=== PATIENT | male | born 1995 | race Caucasian/White ===

== ENCOUNTER 2017-10-06 12:10 | Inpatient (IN) | payer OTHER ==
[2017-10-06] MEDS ORDERED: NACL 0.9% 3 ML SYG IV (14:00)
[2017-10-06] MEDS ORDERED: HYDROmorphONE 0.5 MG/0.5 ML SYG IV (14:00)
[2017-10-06] MEDS ORDERED: ONDANSETRON 4 MG INJ IV (14:00)
[2017-10-06] MEDS ORDERED: oxyCODONE 5 MG TAB GTB (15:30)
[2017-10-06] MEDS ORDERED: hydrALAzine 20 MG INJ IV (15:30)
[2017-10-06] MEDS ORDERED: BISACODYL 10 MG SUPP PR (15:30)
[2017-10-06] MEDS ORDERED: HYPROMELLOSE 0.5% 15 ML OPH BOTH EYES (15:30)
[2017-10-06] MEDS: HYDROmorphONE 1 MG/ML SYG IV (19:30)
[2017-10-06] MEDS: LEVETIRACETAM (100 MG/ML) 5ML CUP GTB (20:13)
[2017-10-06] MEDS: POLYETHYLENE GLYCOL 17 GM PACKET GTB (20:13)
[2017-10-06] MEDS: LACTOBACILLUS RHAMNOSUS CAP GTB (20:14)
[2017-10-06] MEDS: SENNA TAB GTB (20:14)
[2017-10-06] MEDS: PROPRANOLOL 20 MG TAB PO (20:14)
[2017-10-07] MEDS: HYDROmorphONE 1 MG/ML SYG IV ×3 (02:56→19:06)
[2017-10-07] MEDS: ACETAMINOPHEN 650MG/20.3ML CUP GTB (06:03)
[2017-10-07 06:12] LABS: ADD MAN DIFF? NO
[2017-10-07 06:38] LABS: WHITE BLOOD COUNT 11.7 10^3/ul (4.8-10.8)
[2017-10-07 06:38] LABS: BASOPHIL # 0.1 10^3/ul (0.0-0.1); BASOPHILS % 0.5 % (0.0-2.0); EOSINOPHILS # 0.1 10^3/ul (0.0-0.5); EOSINOPHILS % 0.5 % (0.0-7.0); HEMATOCRIT 47.2 % (42.0-52.0); HEMOGLOBIN 15.3 g/dl (14.0-18.0); LYMPHOCYTES # 1.2 10^3/ul (0.8-2.9); MEAN CORPUSCULAR HEMOGLOBIN 29.5 pg (29.0-33.0); MEAN CORPUSCULAR HGB CONC 32.4 g/dl (32.0-37.0); MEAN CORPUSCULAR VOLUME 91.1 fl (82.0-101.0); MONOCYTE # 1.1 10^3/ul (0.3-0.9); MONOCYTES % 8.9 % (0.0-11.0); NEUTROPHIL # 9.3 10^3/ul (1.6-7.5); NEUTROPHILS % 79.2 % (39.0-77.0); PLATELET COUNT 305 10^3/UL (140-415); RED BLOOD COUNT 5.18 10^6/ul (4.70-6.10); RED CELL DISTRIBUTION WIDTH 14.8 % (11.5-14.5)
[2017-10-07 07:07] LABS: ANION GAP 17 (8-16); BLOOD UREA NITROGEN 39 mg/dl (7-20); CALCIUM 9.7 mg/dl (8.4-10.2); CARBON DIOXIDE 29 mmol/L (21-31); CHLORIDE 104 mmol/L (97-110); CREATININE 1.08 mg/dl (0.61-1.24); GLUCOSE 149 mg/dl (70-220); PHOSPHORUS 3.3 mg/dl (2.5-4.9); POTASSIUM 4.9 mmol/L (3.5-5.1); SODIUM 145 mmol/L (135-144)
[2017-10-07] MEDS: LACTOBACILLUS RHAMNOSUS CAP GTB ×2 (08:56→20:26)
[2017-10-07] MEDS: POLYETHYLENE GLYCOL 17 GM PACKET GTB ×2 (08:56→20:26)
[2017-10-07] MEDS: LEVETIRACETAM (100 MG/ML) 5ML CUP GTB ×2 (08:56→20:26)
[2017-10-07] MEDS: PROPRANOLOL 20 MG TAB PO ×3 (08:58→20:26)
[2017-10-07] MEDS: AMANTADINE 100 MG/10 ML POSYR GTB (09:02)
[2017-10-07] MEDS: ZINC SULFATE 220 MG CAP GTB (09:02)
[2017-10-07] MEDS: ASCORBIC ACID 500 MG TAB GTB (09:02)
[2017-10-07] MEDS: SENNA TAB GTB (20:26)
[2017-10-08] MEDS: HYDROmorphONE 1 MG/ML SYG IV (04:10)
[2017-10-08] MEDS: ACETAMINOPHEN 650MG/20.3ML CUP GTB ×3 (05:13→21:13)
[2017-10-08] MEDS: POLYETHYLENE GLYCOL 17 GM PACKET GTB ×2 (09:00→21:13)
[2017-10-08] MEDS: ZINC SULFATE 220 MG CAP GTB (09:48)
[2017-10-08] MEDS: LACTOBACILLUS RHAMNOSUS CAP GTB ×2 (09:48→21:15)
[2017-10-08] MEDS: LEVETIRACETAM (100 MG/ML) 5ML CUP GTB ×2 (09:48→21:13)
[2017-10-08] MEDS: PROPRANOLOL 20 MG TAB PO ×3 (09:49→21:14)
[2017-10-08] MEDS: ASCORBIC ACID 500 MG TAB GTB (09:49)
[2017-10-08] MEDS: AMANTADINE 100 MG/10 ML POSYR GTB (09:49)
[2017-10-08] MEDS: SENNA TAB GTB (21:14)
[2017-10-09] MEDS: ACETAMINOPHEN 650MG/20.3ML CUP GTB ×2 (07:42→21:33)
[2017-10-09] MEDS: ZINC SULFATE 220 MG CAP GTB (09:25)
[2017-10-09] MEDS: PROPRANOLOL 20 MG TAB PO ×3 (09:26→21:33)
[2017-10-09] MEDS: ASCORBIC ACID 500 MG TAB GTB (09:26)
[2017-10-09] MEDS: POLYETHYLENE GLYCOL 17 GM PACKET GTB ×2 (09:26→21:15)
[2017-10-09] MEDS: LACTOBACILLUS RHAMNOSUS CAP GTB ×2 (09:26→21:15)
[2017-10-09] MEDS: LEVETIRACETAM (100 MG/ML) 5ML CUP GTB ×2 (09:26→21:15)
[2017-10-09] MEDS: AMANTADINE 100 MG/10 ML POSYR GTB (09:26)
[2017-10-09] MEDS: HYDROmorphONE 1 MG/ML SYG IV ×2 (11:43→19:00)
[2017-10-09] MEDS: BALSAM PERU/CASTOR OIL 60 GM TUBE TOP (21:15)
[2017-10-09] MEDS: SENNA TAB GTB (21:15)
[2017-10-10 01:19] LABS: ADD UMIC YES; UR ASCORBIC ACID 40 mg/dL (NEGATIVE); UR BILIRUBIN (Dip) NEGATIVE (NEGATIVE); UR BLOOD (Dip) NEGATIVE (NEGATIVE); UR CALCIUM OXALATE CRYSTAL FEW /HPF (NONE SEEN); UR CLARITY CLEAR (CLEAR); UR COLOR YELLOW (YELLOW); UR GLUCOSE (Dip) NEGATIVE (NEGATIVE); UR KETONES (Dip) NEGATIVE (NEGATIVE); UR LEUKOCYTE ESTERASE (Dip) NEGATIVE Leu/ul (NEGATIVE); UR NITRITE (Dip) NEGATIVE (NEGATIVE); UR RBC 2 /HPF (0-5); UR SPECIFIC GRAVITY (Dip) 1.026 (1.003-1.030); UR TOTAL PROTEIN (Dip) 2+ mg/dl (NEGATIVE); UR UROBILINOGEN (Dip) NEGATIVE (NEGATIVE); UR WBC 2 /HPF (0-5)
[2017-10-10] MEDS: LACTOBACILLUS RHAMNOSUS CAP GTB ×2 (09:29→20:32)
[2017-10-10] MEDS: ASCORBIC ACID 500 MG TAB GTB (09:29)
[2017-10-10] MEDS: ZINC SULFATE 220 MG CAP GTB (09:29)
[2017-10-10] MEDS: POLYETHYLENE GLYCOL 17 GM PACKET GTB ×2 (09:30→21:00)
[2017-10-10] MEDS: PROPRANOLOL 20 MG TAB PO ×3 (09:30→20:33)
[2017-10-10] MEDS: LEVETIRACETAM (100 MG/ML) 5ML CUP GTB ×2 (09:31→20:32)
[2017-10-10] MEDS: AMANTADINE 100 MG/10 ML POSYR GTB (09:31)
[2017-10-10] MEDS: BALSAM PERU/CASTOR OIL 60 GM TUBE TOP ×2 (09:31→20:34)
[2017-10-10] MEDS: NYSTATIN SUSP 5 ML CUP PO (09:31)
[2017-10-10] MEDS: HYDROmorphONE 1 MG/ML SYG IV ×2 (13:10→21:14)
[2017-10-10] MEDS: PIPER-TAZO 3.375 GM IV (PMX) 100 ML IVPB ×2 (15:51→22:02)
[2017-10-10] MEDS: ACETAMINOPHEN 650MG/20.3ML CUP GTB (17:57)
[2017-10-10] MEDS: SENNA TAB GTB (21:00)
[2017-10-11] MEDS: HYDROmorphONE 1 MG/ML SYG IV ×2 (03:54→11:06)
[2017-10-11] MEDS: PIPER-TAZO 3.375 GM IV (PMX) 100 ML IVPB ×3 (05:43→21:27)
[2017-10-11] MEDS: LACTOBACILLUS RHAMNOSUS CAP GTB ×2 (09:02→20:34)
[2017-10-11] MEDS: LEVETIRACETAM (100 MG/ML) 5ML CUP GTB ×2 (09:02→20:34)
[2017-10-11] MEDS: POLYETHYLENE GLYCOL 17 GM PACKET GTB ×2 (09:02→20:36)
[2017-10-11] MEDS: AMANTADINE 100 MG/10 ML POSYR GTB (09:03)
[2017-10-11] MEDS: ASCORBIC ACID 500 MG TAB GTB (09:03)
[2017-10-11] MEDS: ZINC SULFATE 220 MG CAP GTB (09:03)
[2017-10-11] MEDS: PROPRANOLOL 20 MG TAB PO ×3 (09:04→20:36)
[2017-10-11] MEDS: BALSAM PERU/CASTOR OIL 60 GM TUBE TOP ×2 (09:05→20:35)
[2017-10-11] MEDS: ACETAMINOPHEN 650MG/20.3ML CUP GTB (19:41)
[2017-10-11] MEDS: SENNA TAB GTB (20:35)
[2017-10-12] MEDS: HYDROmorphONE 1 MG/ML SYG IV (05:27)
[2017-10-12] MEDS: PIPER-TAZO 3.375 GM IV (PMX) 100 ML IVPB ×3 (05:28→21:37)
[2017-10-12 07:02] LABS: ADD MAN DIFF? NO
[2017-10-12 07:08] LABS: BASOPHILS % 0.3 % (0.0-2.0); EOSINOPHILS # 0.2 10^3/ul (0.0-0.5); EOSINOPHILS % 2.4 % (0.0-7.0); HEMATOCRIT 37.2 % (42.0-52.0); HEMOGLOBIN 11.9 g/dl (14.0-18.0); LYMPHOCYTES # 0.8 10^3/ul (0.8-2.9); LYMPHOCYTES % 11.9 % (15.0-51.0); MEAN CORPUSCULAR HEMOGLOBIN 29.9 pg (29.0-33.0); MEAN CORPUSCULAR VOLUME 93.5 fl (82.0-101.0); MEAN PLATELET VOLUME 11.4 fl (7.4-10.4); MONOCYTE # 0.6 10^3/ul (0.3-0.9); MONOCYTES % 8.4 % (0.0-11.0); NEUTROPHIL # 5.4 10^3/ul (1.6-7.5); NEUTROPHILS % 76.7 % (39.0-77.0); PLATELET COUNT 144 10^3/UL (140-415); RED BLOOD COUNT 3.98 10^6/ul (4.70-6.10); RED CELL DISTRIBUTION WIDTH 13.4 % (11.5-14.5)
[2017-10-12 07:36] LABS: ALANINE AMINOTRANSFERASE 188 IU/L (13-69); ALBUMIN 3.9 g/dl (3.3-4.9); ALBUMIN/GLOBULIN RATIO 1.18; ALKALINE PHOSPHATASE 90 IU/L (42-121); ANION GAP 13 (8-16); ASPARTATE AMINO TRANSFERASE 66 IU/L (15-46); BILIRUBIN,INDIRECT 0.6 mg/dl (0-1.1); BILIRUBIN,TOTAL 0.6 mg/dl (0.2-1.3); BLOOD UREA NITROGEN 32 mg/dl (7-20); CALCIUM 9.3 mg/dl (8.4-10.2); CARBON DIOXIDE 30 mmol/L (21-31); CHLORIDE 110 mmol/L (97-110); CREATININE 0.87 mg/dl (0.61-1.24); GLUCOSE 140 mg/dl (70-220); POTASSIUM 3.9 mmol/L (3.5-5.1); SODIUM 149 mmol/L (135-144); TOTAL PROTEIN 7.2 g/dl (6.1-8.1)
[2017-10-12] MEDS: PROPRANOLOL 20 MG TAB PO ×3 (09:00→21:41)
[2017-10-12] MEDS: POLYETHYLENE GLYCOL 17 GM PACKET GTB ×2 (09:28→21:37)
[2017-10-12] MEDS: AMANTADINE 100 MG/10 ML POSYR GTB (09:29)
[2017-10-12] MEDS: ASCORBIC ACID 500 MG TAB GTB (09:29)
[2017-10-12] MEDS: LACTOBACILLUS RHAMNOSUS CAP GTB ×2 (09:29→21:37)
[2017-10-12] MEDS: LEVETIRACETAM (100 MG/ML) 5ML CUP GTB ×2 (09:29→21:37)
[2017-10-12] MEDS: ZINC SULFATE 220 MG CAP GTB (09:29)
[2017-10-12] MEDS: BALSAM PERU/CASTOR OIL 60 GM TUBE TOP ×2 (09:30→21:36)
[2017-10-12] MEDS ORDERED: ALBUTEROL/IPRATROPIUM (NEB) 3 ML AMP HHN (15:00)
[2017-10-12] MEDS: SENNA TAB GTB (21:37)
[2017-10-13] MEDS: PIPER-TAZO 3.375 GM IV (PMX) 100 ML IVPB ×3 (05:48→22:35)
[2017-10-13] MEDS: POLYETHYLENE GLYCOL 17 GM PACKET GTB ×2 (08:25→22:34)
[2017-10-13] MEDS: LEVETIRACETAM (100 MG/ML) 5ML CUP GTB ×2 (08:26→22:32)
[2017-10-13] MEDS: LACTOBACILLUS RHAMNOSUS CAP GTB ×2 (08:26→22:34)
[2017-10-13] MEDS: PROPRANOLOL 20 MG TAB PO ×2 (08:27→13:30)
[2017-10-13] MEDS: ASCORBIC ACID 500 MG TAB GTB (08:27)
[2017-10-13] MEDS: BALSAM PERU/CASTOR OIL 60 GM TUBE TOP ×2 (08:27→22:55)
[2017-10-13] MEDS: ZINC SULFATE 220 MG CAP GTB (08:27)
[2017-10-13] MEDS: AMANTADINE 100 MG/10 ML POSYR GTB (08:27)
[2017-10-13] MEDS: SENNA TAB GTB (22:33)
[2017-10-13] MEDS: PROPRANOLOL 10 MG TAB PO (22:33)
[2017-10-14] MEDS: PIPER-TAZO 3.375 GM IV (PMX) 100 ML IVPB (05:13)
[2017-10-14] MEDS: ASCORBIC ACID 500 MG TAB GTB (08:28)
[2017-10-14] MEDS: LACTOBACILLUS RHAMNOSUS CAP GTB (08:28)
[2017-10-14] MEDS: ZINC SULFATE 220 MG CAP GTB (08:28)
[2017-10-14] MEDS: LEVETIRACETAM (100 MG/ML) 5ML CUP GTB (08:33)
[2017-10-14] MEDS: PROPRANOLOL 10 MG TAB PO (08:33)
[2017-10-14] MEDS: POLYETHYLENE GLYCOL 17 GM PACKET GTB (08:37)
[2017-10-14] MEDS: BALSAM PERU/CASTOR OIL 60 GM TUBE TOP (08:38)
== END 2017-10-14 13:05 | DRG 73 ==
LOC: PP2 12:10
DX: G90.9 Disorder of the autonomic nervous system, unspecified (principal); J18.9 Pneumonia, unspecified organism; K59.00 Constipation, unspecified; S06.5X9D Traumatic subdural hemorrhage with loss of consciousness of unspecified duration, subsequent encounter; Z93.0 Tracheostomy status; Z93.1 Gastrostomy status
CPT/HCPCS: 70553; 71045; 80048; 80053; 81001; 83735; 84100; 85025; 87081

== ENCOUNTER 2017-11-04 21:16 | Inpatient (IN) | payer OTHER ==
[2017-11-04] MEDS: NACL 3% FOR INHALATION 15 ML NEBU NEB (01:00)
[2017-11-04] MEDS ORDERED: LORAZEPAM 2 MG INJ (21:19)
[2017-11-04] MEDS ORDERED: PROPOFOL 100 ML (21:26)
[2017-11-04] MEDS: LORAZEPAM 2 MG INJ IV (21:28)
[2017-11-04] MEDS ORDERED: MIDAZOLAM 1 MG/ML 2 ML INJ (21:35)
[2017-11-04] MEDS: SOD CHLORIDE 0.9% 1,000 ML IV ×2 (21:42→22:42)
[2017-11-04] MEDS: ACETAMINOPHEN 1000MG/100ML IV 100 ML IVPB (21:51)
[2017-11-04] MEDS: MIDAZOLAM 1 MG/ML 2 ML INJ IV (21:54)
[2017-11-04] MEDS ORDERED: VANCOMYCIN IV PER PHARMACY XX (22:00)
[2017-11-04 22:36] LABS: ADD MAN DIFF? NO
[2017-11-04] MEDS: LEVETIRACETAM 1000 MG (PMX) 100 ML IVPB (22:46)
[2017-11-04] MEDS: PIPER-TAZO 3.375 GM IV (PMX) 100 ML IVPB (22:47)
[2017-11-04 22:48] LABS: ABNORMAL IP MESSAGE 1; BASOPHILS % 0.3 % (0.0-2.0); EOSINOPHILS # 0.1 10^3/ul (0.0-0.5); EOSINOPHILS % 1.1 % (0.0-7.0); HEMATOCRIT 34.2 % (42.0-52.0); HEMOGLOBIN 11.1 g/dl (14.0-18.0); LYMPHOCYTES # 0.5 10^3/ul (0.8-2.9); LYMPHOCYTES % 5.7 % (15.0-51.0); MEAN CORPUSCULAR HEMOGLOBIN 29.9 pg (29.0-33.0); MEAN CORPUSCULAR HGB CONC 32.5 g/dl (32.0-37.0); MEAN CORPUSCULAR VOLUME 92.2 fl (82.0-101.0); MEAN PLATELET VOLUME 9.8 fl (7.4-10.4); MONOCYTE # 0.6 10^3/ul (0.3-0.9); MONOCYTES % 6.9 % (0.0-11.0); NEUTROPHIL # 7.8 10^3/ul (1.6-7.5); NEUTROPHILS % 85.1 % (39.0-77.0); PLATELET COUNT 251 10^3/UL (140-415); POSITIVE DIFF @See below; RED BLOOD COUNT 3.71 10^6/ul (4.70-6.10); RED CELL DISTRIBUTION WIDTH 13.5 % (11.5-14.5)
[2017-11-04 22:48] LABS: WHITE BLOOD COUNT 9.2 10^3/ul (4.8-10.8)
[2017-11-04 22:51] LABS: ADD UMIC YES; UR ASCORBIC ACID NEGATIVE (NEGATIVE); UR BACTERIA FEW /HPF (NONE SEEN); UR BILIRUBIN (Dip) NEGATIVE (NEGATIVE); UR BLOOD (Dip) 3+ mg/dL (NEGATIVE); UR CLARITY SLIGHTLY CLOUDY (CLEAR); UR COLOR YELLOW (YELLOW); UR GLUCOSE (Dip) NEGATIVE (NEGATIVE); UR KETONES (Dip) NEGATIVE (NEGATIVE); UR LEUKOCYTE ESTERASE (Dip) NEGATIVE Leu/ul (NEGATIVE); UR MUCUS MODERATE /HPF (NONE SEEN); UR NITRITE (Dip) NEGATIVE (NEGATIVE); UR RBC > 182 /HPF (0-5); UR SPECIFIC GRAVITY (Dip) 1.015 (1.003-1.030); UR TOTAL PROTEIN (Dip) 1+ mg/dl (NEGATIVE); UR UROBILINOGEN (Dip) NEGATIVE (NEGATIVE); UR WBC 9 /HPF (0-5)
[2017-11-04 22:54] LABS: HEMOGLOBIN A1C 5.5 % (0-5.9)
[2017-11-04] MEDS: PROPOFOL 100 ML IV (23:00)
[2017-11-04 23:01] LABS: LACTIC ACID 1.1 mmol/L (0.5-2.0)
[2017-11-04 23:02] LABS: ALANINE AMINOTRANSFERASE 31 IU/L (13-69); ALBUMIN 3.2 g/dl (3.3-4.9); ALKALINE PHOSPHATASE 82 IU/L (42-121); ANION GAP 10 (8-16); ASPARTATE AMINO TRANSFERASE 17 IU/L (15-46); BILIRUBIN,INDIRECT 0.4 mg/dl (0-1.1); BILIRUBIN,TOTAL 0.4 mg/dl (0.2-1.3); BLOOD UREA NITROGEN 8 mg/dl (7-20); CALCIUM 8.6 mg/dl (8.4-10.2); CARBON DIOXIDE 28 mmol/L (21-31); CHLORIDE 102 mmol/L (97-110); CREATININE 0.53 mg/dl (0.61-1.24); GLUCOSE 106 mg/dl (70-220); POTASSIUM 3.9 mmol/L (3.5-5.1); SODIUM 136 mmol/L (135-144); TOTAL PROTEIN 6.1 g/dl (6.1-8.1)
[2017-11-04 23:06] LABS: INR 1.16; PT RATIO 1.2
[2017-11-04 23:07] LABS: PARTIAL THROMBOPLASTIN TIME 32.6 Sec (25.0-35.0)
[2017-11-05] MEDS: VANCOMYCIN 1.5 GM in SOD CHLORIDE 0.9% 250 ML IVPB
[2017-11-05 03:27] LABS: AADO2 Arterial 96.2 mmHg (7.0-24.0); Arterial Blood Gas Oxygen Sat 99.2 mmHG (95.0-98.0); Arterial COHb 0.2 % (0.0-3.0); Arterial Fraction of Oxyhgb 98.6 % (93.0-99.0); Arterial HCO3 27.9 mmol/L (22.0-26.0); Arterial MetHb 0.4 % (0.0-1.5); Arterial Total Hemglobin 10.7 g/dl (12.0-18.0); Arterial pCO2 44.2 mmhg (35-45); MODE VENT - AC; Site Right Radial
[2017-11-05] MEDS: PROPOFOL 100 ML IV ×5 (04:01→21:54)
[2017-11-05 05:22] LABS: ADD MAN DIFF? NO
[2017-11-05 05:24] LABS: BASOPHILS % 0.3 % (0.0-2.0); EOSINOPHILS # 0.2 10^3/ul (0.0-0.5); EOSINOPHILS % 2.2 % (0.0-7.0); HEMATOCRIT 29.4 % (42.0-52.0); HEMOGLOBIN 9.6 g/dl (14.0-18.0); LYMPHOCYTES % 12.8 % (15.0-51.0); MEAN CORPUSCULAR HEMOGLOBIN 29.9 pg (29.0-33.0); MEAN CORPUSCULAR HGB CONC 32.7 g/dl (32.0-37.0); MEAN CORPUSCULAR VOLUME 91.6 fl (82.0-101.0); MEAN PLATELET VOLUME 10.1 fl (7.4-10.4); MONOCYTE # 0.6 10^3/ul (0.3-0.9); MONOCYTES % 8.2 % (0.0-11.0); NEUTROPHIL # 5.6 10^3/ul (1.6-7.5); NEUTROPHILS % 75.8 % (39.0-77.0); PLATELET COUNT 221 10^3/UL (140-415); RED BLOOD COUNT 3.21 10^6/ul (4.70-6.10); RED CELL DISTRIBUTION WIDTH 13.6 % (11.5-14.5)
[2017-11-05 05:24] LABS: WHITE BLOOD COUNT 7.4 10^3/ul (4.8-10.8)
[2017-11-05] MEDS: PIPER-TAZO 3.375 GM IV (PMX) 100 ML IVPB ×3 (05:40→18:18)
[2017-11-05] MEDS: PANTOPRAZOLE 40 MG INJ IV (05:40)
[2017-11-05 05:55] LABS: ALANINE AMINOTRANSFERASE 34 IU/L (13-69); ALBUMIN 2.8 g/dl (3.3-4.9); ALBUMIN/GLOBULIN RATIO 1.12; ALKALINE PHOSPHATASE 77 IU/L (42-121); ANION GAP 9 (8-16); ASPARTATE AMINO TRANSFERASE 15 IU/L (15-46); BILIRUBIN,INDIRECT 0.4 mg/dl (0-1.1); BILIRUBIN,TOTAL 0.4 mg/dl (0.2-1.3); BLOOD UREA NITROGEN 8 mg/dl (7-20); CALCIUM 8.8 mg/dl (8.4-10.2); CARBON DIOXIDE 27 mmol/L (21-31); CHLORIDE 107 mmol/L (97-110); CREATININE 0.53 mg/dl (0.61-1.24); GLUCOSE 85 mg/dl (70-220); POTASSIUM 3.4 mmol/L (3.5-5.1); SODIUM 140 mmol/L (135-144); TOTAL PROTEIN 5.3 g/dl (6.1-8.1)
[2017-11-05] MEDS: LEVETIRACETAM 1000 MG (PMX) 100 ML IVPB ×2 (08:12→21:20)
[2017-11-05] MEDS: VANCOMYCIN 1 GM 250 ML IVPB ×2 (09:26→15:53)
[2017-11-05] MEDS: SOD CHLORIDE 0.9% 1,000 ML IV ×2 (10:04→15:55)
[2017-11-05] MEDS: POTASSIUM CHLORIDE 20 MEQ POWDER FOR ORAL SOLN GTB (14:44)
[2017-11-05] MEDS: ACETAMINOPHEN 1000MG/100ML IV 100 ML IVPB (19:26)
[2017-11-06 00:09] LABS: VANCOMYCIN,TROUGH 11.3 ug/ml (10.0-20.0)
[2017-11-06] MEDS: PIPER-TAZO 3.375 GM IV (PMX) 100 ML IVPB ×4 (00:12→19:00)
[2017-11-06] MEDS: VANCOMYCIN 1 GM 250 ML IVPB ×4 (01:00→23:00)
[2017-11-06] MEDS: ACETAMINOPHEN 1000MG/100ML IV 100 ML IVPB (01:02)
[2017-11-06 06:00] LABS: ADD MAN DIFF? NO
[2017-11-06] MEDS: PANTOPRAZOLE 40 MG INJ IV (06:20)
[2017-11-06 06:29] LABS: BASOPHILS % 0.3 % (0.0-2.0); EOSINOPHILS # 0.2 10^3/ul (0.0-0.5); EOSINOPHILS % 2.3 % (0.0-7.0); HEMATOCRIT 35.6 % (42.0-52.0); HEMOGLOBIN 11.5 g/dl (14.0-18.0); LYMPHOCYTES # 0.7 10^3/ul (0.8-2.9); LYMPHOCYTES % 8.1 % (15.0-51.0); MEAN CORPUSCULAR HEMOGLOBIN 29.8 pg (29.0-33.0); MEAN CORPUSCULAR HGB CONC 32.3 g/dl (32.0-37.0); MEAN CORPUSCULAR VOLUME 92.2 fl (82.0-101.0); MEAN PLATELET VOLUME 9.9 fl (7.4-10.4); MONOCYTE # 0.7 10^3/ul (0.3-0.9); MONOCYTES % 8.3 % (0.0-11.0); NEUTROPHIL # 6.4 10^3/ul (1.6-7.5); NEUTROPHILS % 80.4 % (39.0-77.0); PLATELET COUNT 280 10^3/UL (140-415); RED BLOOD COUNT 3.86 10^6/ul (4.70-6.10); RED CELL DISTRIBUTION WIDTH 13.3 % (11.5-14.5)
[2017-11-06] MEDS: SOD CHLORIDE 0.9% 1,000 ML IV (06:30)
[2017-11-06 06:37] LABS: ALANINE AMINOTRANSFERASE 28 IU/L (13-69); ALBUMIN 3.6 g/dl (3.3-4.9); ALBUMIN/GLOBULIN RATIO 1.16; ALKALINE PHOSPHATASE 102 IU/L (42-121); ANION GAP 17 (8-16); ASPARTATE AMINO TRANSFERASE 17 IU/L (15-46); BILIRUBIN,INDIRECT 0.3 mg/dl (0-1.1); BILIRUBIN,TOTAL 0.3 mg/dl (0.2-1.3); BLOOD UREA NITROGEN 4 mg/dl (7-20); CALCIUM 8.9 mg/dl (8.4-10.2); CARBON DIOXIDE 25 mmol/L (21-31); CHLORIDE 101 mmol/L (97-110); CREATININE 0.51 mg/dl (0.61-1.24); GLUCOSE 74 mg/dl (70-220); POTASSIUM 3.5 mmol/L (3.5-5.1); SODIUM 139 mmol/L (135-144); TOTAL PROTEIN 6.7 g/dl (6.1-8.1)
[2017-11-06 06:44] LABS: MAGNESIUM 1.4 mg/dl (1.7-2.5)
[2017-11-06 06:44] LABS: PHOSPHORUS 3.9 mg/dl (2.5-4.9)
[2017-11-06] MEDS: PROPOFOL 100 ML IV ×3 (06:49→21:02)
[2017-11-06] MEDS: LEVETIRACETAM 1000 MG (PMX) 100 ML IVPB ×2 (09:23→21:01)
[2017-11-06] MEDS: LORAZEPAM 2 MG INJ IV (09:42)
[2017-11-06 13:35] LABS: PHENYTOIN (DILANTIN) 7.3 ug/ml (10.0-20.0)
[2017-11-06 13:50] LABS: Allen Test ACCEPTAB
[2017-11-06] MEDS: PHENYTOIN 100 MG INJ IV ×2 (14:30→21:01)
[2017-11-06 20:00] LABS: RAPID PLASMA REAGIN NONREACTIVE (NR)
[2017-11-07] MEDS: PIPER-TAZO 3.375 GM IV (PMX) 100 ML IVPB ×2 (00:46→05:25)
[2017-11-07] MEDS: PROPOFOL 100 ML IV (01:55)
[2017-11-07] MEDS: MIDAZOLAM 1 MG/ML 2 ML INJ IV (03:19)
[2017-11-07] MEDS: MIDAZOLAM 1 MG/ML 5 ML INJ IV (03:30)
[2017-11-07] MEDS: ACETAMINOPHEN 1000MG/100ML IV 100 ML IVPB ×3 (04:13→20:30)
[2017-11-07] MEDS: PHENYTOIN 100 MG INJ IV ×3 (05:25→22:05)
[2017-11-07] MEDS: PANTOPRAZOLE 40 MG INJ IV (05:25)
[2017-11-07 05:29] LABS: ADD MAN DIFF? NO
[2017-11-07 05:33] LABS: WHITE BLOOD COUNT 4.8 10^3/ul (4.8-10.8)
[2017-11-07 05:33] LABS: ABNORMAL IP MESSAGE 1; BASOPHILS % 0.4 % (0.0-2.0); EOSINOPHILS # 0.1 10^3/ul (0.0-0.5); EOSINOPHILS % 2.9 % (0.0-7.0); HEMATOCRIT 32.9 % (42.0-52.0); LYMPHOCYTES # 0.5 10^3/ul (0.8-2.9); LYMPHOCYTES % 9.4 % (15.0-51.0); MEAN CORPUSCULAR HEMOGLOBIN 30.4 pg (29.0-33.0); MEAN CORPUSCULAR HGB CONC 33.4 g/dl (32.0-37.0); MEAN CORPUSCULAR VOLUME 90.9 fl (82.0-101.0); MEAN PLATELET VOLUME 9.5 fl (7.4-10.4); MONOCYTE # 0.6 10^3/ul (0.3-0.9); MONOCYTES % 12.4 % (0.0-11.0); NEUTROPHIL # 3.6 10^3/ul (1.6-7.5); NEUTROPHILS % 74.5 % (39.0-77.0); PLATELET COUNT 258 10^3/UL (140-415); POSITIVE DIFF @See below; RED BLOOD COUNT 3.62 10^6/ul (4.70-6.10); RED CELL DISTRIBUTION WIDTH 13.4 % (11.5-14.5)
[2017-11-07 06:42] LABS: ALANINE AMINOTRANSFERASE 26 IU/L (13-69); ALBUMIN 3.2 g/dl (3.3-4.9); ALKALINE PHOSPHATASE 89 IU/L (42-121); ANION GAP 12 (8-16); ASPARTATE AMINO TRANSFERASE 21 IU/L (15-46); BILIRUBIN,INDIRECT 0.2 mg/dl (0-1.1); BILIRUBIN,TOTAL 0.2 mg/dl (0.2-1.3); BLOOD UREA NITROGEN 5 mg/dl (7-20); CALCIUM 8.7 mg/dl (8.4-10.2); CARBON DIOXIDE 30 mmol/L (21-31); CHLORIDE 102 mmol/L (97-110); CREATININE 0.46 mg/dl (0.61-1.24); GLUCOSE 116 mg/dl (70-220); POTASSIUM 3.1 mmol/L (3.5-5.1); SODIUM 141 mmol/L (135-144); TOTAL PROTEIN 6.1 g/dl (6.1-8.1)
[2017-11-07] MEDS: VANCOMYCIN 1 GM 250 ML IVPB (08:09)
[2017-11-07] MEDS: LEVETIRACETAM 1000 MG (PMX) 100 ML IVPB ×2 (10:10→20:17)
[2017-11-07] MEDS: POTASSIUM CHLORIDE (SR) 20 MEQ TAB PO (10:35)
[2017-11-07] MEDS: LEVOFLOXACIN 500 MG TAB GTB (11:41)
[2017-11-07] MEDS: HEPARIN 5,000 UNIT/0.5 ML VIAL SC (22:06)
[2017-11-08] MEDS: ACETAMINOPHEN 1000MG/100ML IV 100 ML IVPB ×2 (04:00→20:23)
[2017-11-08 05:06] LABS: ADD MAN DIFF? NO
[2017-11-08 05:12] LABS: ABNORMAL IP MESSAGE 1; BASOPHILS % 0.3 % (0.0-2.0); EOSINOPHILS # 0.1 10^3/ul (0.0-0.5); EOSINOPHILS % 0.8 % (0.0-7.0); HEMATOCRIT 42.3 % (42.0-52.0); LYMPHOCYTES # 0.6 10^3/ul (0.8-2.9); LYMPHOCYTES % 9.1 % (15.0-51.0); MEAN CORPUSCULAR HEMOGLOBIN 29.8 pg (29.0-33.0); MEAN CORPUSCULAR HGB CONC 33.1 g/dl (32.0-37.0); MEAN PLATELET VOLUME 9.4 fl (7.4-10.4); MONOCYTE # 0.6 10^3/ul (0.3-0.9); MONOCYTES % 9.4 % (0.0-11.0); NEUTROPHIL # 5.2 10^3/ul (1.6-7.5); NEUTROPHILS % 79.8 % (39.0-77.0); PLATELET COUNT 329 10^3/UL (140-415); POSITIVE DIFF @See below; RED CELL DISTRIBUTION WIDTH 13.2 % (11.5-14.5)
[2017-11-08 05:12] LABS: WHITE BLOOD COUNT 6.5 10^3/ul (4.8-10.8)
[2017-11-08] MEDS: PANTOPRAZOLE 40 MG INJ IV (05:24)
[2017-11-08] MEDS: LEVOFLOXACIN 500 MG TAB GTB (05:24)
[2017-11-08] MEDS: PHENYTOIN 100 MG INJ IV ×3 (05:24→22:53)
[2017-11-08] MEDS: HEPARIN 5,000 UNIT/0.5 ML VIAL SC ×3 (05:27→22:57)
[2017-11-08 05:42] LABS: ALANINE AMINOTRANSFERASE 28 IU/L (13-69); ALBUMIN 4.2 g/dl (3.3-4.9); ALBUMIN/GLOBULIN RATIO 1.23; ALKALINE PHOSPHATASE 124 IU/L (42-121); ANION GAP 18 (8-16); ASPARTATE AMINO TRANSFERASE 19 IU/L (15-46); BILIRUBIN,INDIRECT 0.3 mg/dl (0-1.1); BILIRUBIN,TOTAL 0.3 mg/dl (0.2-1.3); BLOOD UREA NITROGEN 4 mg/dl (7-20); CALCIUM 9.7 mg/dl (8.4-10.2); CARBON DIOXIDE 30 mmol/L (21-31); CHLORIDE 97 mmol/L (97-110); CREATININE 0.49 mg/dl (0.61-1.24); GLUCOSE 108 mg/dl (70-220); SODIUM 141 mmol/L (135-144); TOTAL PROTEIN 7.6 g/dl (6.1-8.1)
[2017-11-08] MEDS ORDERED: ROCURONIUM 50 MG INJ ×2 (07:00→16:21)
[2017-11-08] MEDS: ONDANSETRON 4 MG INJ IV (07:35)
[2017-11-08] MEDS: LEVETIRACETAM 1000 MG (PMX) 100 ML IVPB ×2 (08:04→21:28)
[2017-11-08] MEDS: PROPOFOL 100 ML IV ×3 (08:06→14:41)
[2017-11-08] MEDS ORDERED: FENTAnyl 50 MCG/ML VIAL ×3 (16:21→17:14)
[2017-11-08] MEDS ORDERED: MIDAZOLAM 1 MG/ML 2 ML INJ (16:21)
[2017-11-08] MEDS ORDERED: VANCOMYCIN 1 GM (PMX) 250 ML (16:47)
[2017-11-08] MEDS ORDERED: MEPERIDINE 25 MG INJ IV (17:00)
[2017-11-08] MEDS ORDERED: LABETALOL HCL 20MG INJ IV (17:00)
[2017-11-08] MEDS ORDERED: FENTAnyl 50 MCG/ML VIAL IV ×3 (17:00)
[2017-11-08] MEDS ORDERED: ONDANSETRON 4 MG INJ IV (17:00)
[2017-11-08] MEDS ORDERED: hydrALAzine 20 MG INJ IV (17:00)
[2017-11-08] MEDS ORDERED: DIPHENHYDRAMINE 50 MG INJ IV (17:00)
[2017-11-08] MEDS ORDERED: ALBUMIN HUMAN 5% 250 ML IV (17:00)
[2017-11-08] MEDS ORDERED: HYDROmorphONE 0.5 MG/0.5 ML SYG IV ×3 (17:00)
[2017-11-08] MEDS ORDERED: EPHEDrine SULFATE 50 MG/5 ML SYG IV (17:00)
[2017-11-08] MEDS ORDERED: GELATIN SIZE 100 SPONGE (17:28)
[2017-11-08] MEDS: THROMBIN 5000 UNIT VIAL ×2 (17:34→17:35)
[2017-11-08] MEDS: POLYMYXIN/BACITRACIN 1L IRRIG (17:35)
[2017-11-08] MEDS ORDERED: PROPOFOL 100 ML (18:24)
[2017-11-08] MEDS: NEOMYC/POLYMYX/BACIT 30 GM OINT (18:25)
[2017-11-09 05:00] LABS: ADD MAN DIFF? NO
[2017-11-09 05:06] LABS: BASOPHILS % 0.2 % (0.0-2.0); EOSINOPHILS % 0.5 % (0.0-7.0); HEMATOCRIT 37.9 % (42.0-52.0); HEMOGLOBIN 12.4 g/dl (14.0-18.0); LYMPHOCYTES # 0.7 10^3/ul (0.8-2.9); LYMPHOCYTES % 8.4 % (15.0-51.0); MEAN CORPUSCULAR HEMOGLOBIN 29.9 pg (29.0-33.0); MEAN CORPUSCULAR HGB CONC 32.7 g/dl (32.0-37.0); MEAN CORPUSCULAR VOLUME 91.3 fl (82.0-101.0); MEAN PLATELET VOLUME 10.1 fl (7.4-10.4); MONOCYTE # 0.9 10^3/ul (0.3-0.9); MONOCYTES % 9.7 % (0.0-11.0); NEUTROPHIL # 7.1 10^3/ul (1.6-7.5); NEUTROPHILS % 80.7 % (39.0-77.0); PLATELET COUNT 349 10^3/UL (140-415); RED BLOOD COUNT 4.15 10^6/ul (4.70-6.10); RED CELL DISTRIBUTION WIDTH 13.5 % (11.5-14.5)
[2017-11-09 05:06] LABS: WHITE BLOOD COUNT 8.8 10^3/ul (4.8-10.8)
[2017-11-09 05:31] LABS: ALANINE AMINOTRANSFERASE 32 IU/L (13-69); ALBUMIN 3.7 g/dl (3.3-4.9); ALBUMIN/GLOBULIN RATIO 1.15; ALKALINE PHOSPHATASE 109 IU/L (42-121); ANION GAP 12 (8-16); ASPARTATE AMINO TRANSFERASE 22 IU/L (15-46); BILIRUBIN,INDIRECT 0.2 mg/dl (0-1.1); BILIRUBIN,TOTAL 0.2 mg/dl (0.2-1.3); BLOOD UREA NITROGEN 9 mg/dl (7-20); CARBON DIOXIDE 30 mmol/L (21-31); CHLORIDE 102 mmol/L (97-110); CREATININE 0.47 mg/dl (0.61-1.24); GLUCOSE 97 mg/dl (70-220); POTASSIUM 3.3 mmol/L (3.5-5.1); SODIUM 141 mmol/L (135-144); TOTAL PROTEIN 6.9 g/dl (6.1-8.1)
[2017-11-09] MEDS: PANTOPRAZOLE 40 MG INJ IV (05:33)
[2017-11-09] MEDS: LEVOFLOXACIN 500 MG TAB GTB (05:33)
[2017-11-09] MEDS: PHENYTOIN 100 MG INJ IV ×3 (05:33→22:00)
[2017-11-09] MEDS: HEPARIN 5,000 UNIT/0.5 ML VIAL SC ×3 (05:34→22:16)
[2017-11-09] MEDS: ACETAMINOPHEN 1000MG/100ML IV 100 ML IVPB ×2 (08:23→19:42)
[2017-11-09] MEDS: LEVETIRACETAM 1000 MG (PMX) 100 ML IVPB ×2 (08:23→20:14)
[2017-11-09] MEDS: MIDAZOLAM 1 MG/ML 2 ML INJ IV (09:41)
[2017-11-09] MEDS: PROPOFOL 100 ML IV ×2 (10:25→17:45)
[2017-11-09] MEDS: MIDAZOLAM (DRIP) 50 mg/50 mL 50 ML IV ×2 (17:45→23:41)
[2017-11-09] MEDS: hydrALAzine 20 MG INJ IV (20:10)
[2017-11-10] MEDS: PROPOFOL 100 ML IV ×3 (01:30→23:07)
[2017-11-10] MEDS: ACETAMINOPHEN 1000MG/100ML IV 100 ML IVPB (03:02)
[2017-11-10] MEDS: LEVOFLOXACIN 500 MG TAB GTB (05:47)
[2017-11-10] MEDS: PHENYTOIN 100 MG INJ IV ×3 (05:47→21:02)
[2017-11-10] MEDS: PANTOPRAZOLE 40 MG INJ IV (05:47)
[2017-11-10] MEDS: HEPARIN 5,000 UNIT/0.5 ML VIAL SC ×3 (05:49→21:04)
[2017-11-10 07:25] LABS: ADD MAN DIFF? NO
[2017-11-10 07:41] LABS: BASOPHILS % 0.5 % (0.0-2.0); EOSINOPHILS % 0.5 % (0.0-7.0); HEMATOCRIT 36.9 % (42.0-52.0); HEMOGLOBIN 11.9 g/dl (14.0-18.0); LYMPHOCYTES # 0.9 10^3/ul (0.8-2.9); LYMPHOCYTES % 11.8 % (15.0-51.0); MEAN CORPUSCULAR HEMOGLOBIN 29.4 pg (29.0-33.0); MEAN CORPUSCULAR HGB CONC 32.2 g/dl (32.0-37.0); MEAN CORPUSCULAR VOLUME 91.1 fl (82.0-101.0); MEAN PLATELET VOLUME 9.4 fl (7.4-10.4); MONOCYTE # 0.9 10^3/ul (0.3-0.9); MONOCYTES % 11.8 % (0.0-11.0); NEUTROPHIL # 5.5 10^3/ul (1.6-7.5); NEUTROPHILS % 74.9 % (39.0-77.0); PLATELET COUNT 287 10^3/UL (140-415); RED BLOOD COUNT 4.05 10^6/ul (4.70-6.10); RED CELL DISTRIBUTION WIDTH 14.1 % (11.5-14.5)
[2017-11-10 07:41] LABS: WHITE BLOOD COUNT 7.4 10^3/ul (4.8-10.8)
[2017-11-10 08:00] LABS: LIPASE 110 U/L (23-300)
[2017-11-10 08:03] LABS: ALANINE AMINOTRANSFERASE 31 IU/L (13-69); ALBUMIN 3.7 g/dl (3.3-4.9); ALBUMIN/GLOBULIN RATIO 1.15; ALKALINE PHOSPHATASE 99 IU/L (42-121); ANION GAP 9 (8-16); ASPARTATE AMINO TRANSFERASE 18 IU/L (15-46); BILIRUBIN,INDIRECT 0.2 mg/dl (0-1.1); BILIRUBIN,TOTAL 0.2 mg/dl (0.2-1.3); BLOOD UREA NITROGEN 9 mg/dl (7-20); CALCIUM 9.1 mg/dl (8.4-10.2); CARBON DIOXIDE 33 mmol/L (21-31); CHLORIDE 103 mmol/L (97-110); CREATININE 0.46 mg/dl (0.61-1.24); GLUCOSE 104 mg/dl (70-220); POTASSIUM 3.3 mmol/L (3.5-5.1); SODIUM 142 mmol/L (135-144); TOTAL PROTEIN 6.9 g/dl (6.1-8.1)
[2017-11-10] MEDS: MIDAZOLAM (DRIP) 50 mg/50 mL 50 ML IV ×2 (09:40→20:01)
[2017-11-10] MEDS: LEVETIRACETAM 1000 MG (PMX) 100 ML IVPB ×2 (09:49→20:50)
[2017-11-10] MEDS: POTASSIUM CHLORIDE 20 MEQ POWDER FOR ORAL SOLN JT (14:39)
[2017-11-10] MEDS ORDERED: VANCOMYCIN IV PER PHARMACY XX (15:00)
[2017-11-10] MEDS: MEROPENEM 1 GM/50ML(PMX) 50 ML IVPB ×2 (15:46→21:02)
[2017-11-10] MEDS: VANCOMYCIN 1.5 GM in SOD CHLORIDE 0.9% 250 ML IVPB (15:54)
[2017-11-10] MEDS: VANCOMYCIN 1.25 GM in SOD CHLORIDE 0.9% 250 ML IVPB (23:01)
[2017-11-11] MEDS ORDERED: VANCOMYCIN 1 GM 250 ML IVPB
[2017-11-11] MEDS: LEVOFLOXACIN 500 MG TAB GTB (05:02)
[2017-11-11] MEDS: MEROPENEM 1 GM/50ML(PMX) 50 ML IVPB ×3 (05:02→21:50)
[2017-11-11] MEDS: PHENYTOIN 100 MG INJ IV ×3 (05:02→21:49)
[2017-11-11] MEDS: PANTOPRAZOLE (EC) 40 MG TAB PO (05:03)
[2017-11-11] MEDS: MIDAZOLAM (DRIP) 50 mg/50 mL 50 ML IV (05:13)
[2017-11-11 05:27] LABS: ADD MAN DIFF? NO
[2017-11-11 05:31] LABS: WHITE BLOOD COUNT 6.2 10^3/ul (4.8-10.8)
[2017-11-11 05:31] LABS: BASOPHILS % 0.3 % (0.0-2.0); EOSINOPHILS # 0.1 10^3/ul (0.0-0.5); EOSINOPHILS % 2.1 % (0.0-7.0); HEMOGLOBIN 10.5 g/dl (14.0-18.0); IMMATURE GRANS #M 0.03 10^3/ul; IMMATURE GRANS % (M) 0.5 %; LYMPHOCYTES # 0.8 10^3/ul (0.8-2.9); LYMPHOCYTES % 12.9 % (15.0-51.0); MEAN CORPUSCULAR HEMOGLOBIN 30.5 pg (29.0-33.0); MEAN CORPUSCULAR HGB CONC 32.8 g/dl (32.0-37.0); MEAN PLATELET VOLUME 9.8 fl (7.4-10.4); MONOCYTE # 0.7 10^3/ul (0.3-0.9); MONOCYTES % 11.7 % (0.0-11.0); NEUTROPHIL # 4.5 10^3/ul (1.6-7.5); NEUTROPHILS % 72.5 % (39.0-77.0); PLATELET COUNT 298 10^3/UL (140-415); RED BLOOD COUNT 3.44 10^6/ul (4.70-6.10); RED CELL DISTRIBUTION WIDTH 13.8 % (11.5-14.5)
[2017-11-11] MEDS: HEPARIN 5,000 UNIT/0.5 ML VIAL SC ×3 (05:42→21:52)
[2017-11-11 06:07] LABS: ANION GAP 10 (8-16); BLOOD UREA NITROGEN 10 mg/dl (7-20); CALCIUM 8.7 mg/dl (8.4-10.2); CARBON DIOXIDE 31 mmol/L (21-31); CHLORIDE 104 mmol/L (97-110); CREATININE 0.43 mg/dl (0.61-1.24); GLUCOSE 106 mg/dl (70-220); POTASSIUM 3.4 mmol/L (3.5-5.1); SODIUM 142 mmol/L (135-144)
[2017-11-11] MEDS: VANCOMYCIN 1.25 GM in SOD CHLORIDE 0.9% 250 ML IVPB ×2 (08:41→16:19)
[2017-11-11] MEDS: LEVETIRACETAM 1000 MG (PMX) 100 ML IVPB ×2 (08:41→20:21)
[2017-11-11 09:28] LABS: ADD UMIC YES; UR ASCORBIC ACID NEGATIVE (NEGATIVE); UR BACTERIA FEW /HPF (NONE SEEN); UR BILIRUBIN (Dip) NEGATIVE (NEGATIVE); UR BLOOD (Dip) 1+ mg/dL (NEGATIVE); UR BUDDING YEAST FEW /HPF (NONE SEEN); UR CALCIUM OXALATE CRYSTAL FEW /HPF (NONE SEEN); UR CLARITY CLOUDY (CLEAR); UR COLOR YELLOW (YELLOW); UR GLUCOSE (Dip) NEGATIVE (NEGATIVE); UR KETONES (Dip) NEGATIVE (NEGATIVE); UR LEUKOCYTE ESTERASE (Dip) NEGATIVE Leu/ul (NEGATIVE); UR MUCUS FEW /HPF (NONE SEEN); UR NITRITE (Dip) NEGATIVE (NEGATIVE); UR RBC 52 /HPF (0-5); UR SPECIFIC GRAVITY (Dip) 1.027 (1.003-1.030); UR TOTAL PROTEIN (Dip) 1+ mg/dl (NEGATIVE); UR UROBILINOGEN (Dip) NEGATIVE (NEGATIVE); UR WBC 10 /HPF (0-5)
[2017-11-11] MEDS: PROPOFOL 100 ML IV ×2 (10:20→22:16)
[2017-11-11] MEDS: POTASSIUM CHLORIDE 20 MEQ POWDER FOR ORAL SOLN GTB (13:30)
[2017-11-11 21:36] LABS: AADO2 Arterial 62.6 mmHg (7.0-24.0); Allen Test ACCEPTAB; Arterial Base Excess 4.8 mmol/L (-3.0-3); Arterial Blood Gas Oxygen Sat 98.9 mmHG (95.0-98.0); Arterial COHb 0.3 % (0.0-3.0); Arterial Fraction of Oxyhgb 98.2 % (93.0-99.0); Arterial HCO3 29.5 mmol/L (22.0-26.0); Arterial MetHb 0.4 % (0.0-1.5); Arterial Total Hemglobin 11.8 g/dl (12.0-18.0); Arterial pCO2 43.9 mmhg (35-45); Blood Gas PS 10; MODE VENT - CPAP; Site Right Radial
[2017-11-11] MEDS: hydrALAzine 20 MG INJ IV (22:17)
[2017-11-11 23:40] LABS: VANCOMYCIN,TROUGH 11.7 ug/ml (10.0-20.0)
[2017-11-12] MEDS: VANCOMYCIN 1.25 GM in SOD CHLORIDE 0.9% 250 ML IVPB ×2 (00:35→08:23)
[2017-11-12] MEDS: ONDANSETRON 4 MG INJ IV (03:51)
[2017-11-12 04:41] LABS: ADD MAN DIFF? NO
[2017-11-12 04:46] LABS: WHITE BLOOD COUNT 6.7 10^3/ul (4.8-10.8)
[2017-11-12 04:46] LABS: BASOPHILS % 0.4 % (0.0-2.0); EOSINOPHILS # 0.1 10^3/ul (0.0-0.5); EOSINOPHILS % 2.1 % (0.0-7.0); HEMOGLOBIN 10.4 g/dl (14.0-18.0); IMMATURE GRANS #M 0.04 10^3/ul; IMMATURE GRANS % (M) 0.6 %; LYMPHOCYTES # 0.8 10^3/ul (0.8-2.9); LYMPHOCYTES % 11.6 % (15.0-51.0); MEAN CORPUSCULAR HEMOGLOBIN 29.3 pg (29.0-33.0); MEAN CORPUSCULAR HGB CONC 32.5 g/dl (32.0-37.0); MEAN CORPUSCULAR VOLUME 90.1 fl (82.0-101.0); MEAN PLATELET VOLUME 10.3 fl (7.4-10.4); MONOCYTE # 0.6 10^3/ul (0.3-0.9); MONOCYTES % 9.4 % (0.0-11.0); NEUTROPHIL # 5.1 10^3/ul (1.6-7.5); NEUTROPHILS % 75.9 % (39.0-77.0); PLATELET COUNT 316 10^3/UL (140-415); RED BLOOD COUNT 3.55 10^6/ul (4.70-6.10); RED CELL DISTRIBUTION WIDTH 13.5 % (11.5-14.5)
[2017-11-12 05:03] LABS: ANION GAP 14 (8-16); BLOOD UREA NITROGEN 7 mg/dl (7-20); CARBON DIOXIDE 27 mmol/L (21-31); CHLORIDE 101 mmol/L (97-110); GLUCOSE 103 mg/dl (70-220); POTASSIUM 3.8 mmol/L (3.5-5.1); SODIUM 138 mmol/L (135-144)
[2017-11-12] MEDS: PANTOPRAZOLE (EC) 40 MG TAB PO (05:26)
[2017-11-12] MEDS: LEVOFLOXACIN 500 MG TAB GTB (05:26)
[2017-11-12] MEDS: MEROPENEM 1 GM/50ML(PMX) 50 ML IVPB ×3 (05:26→21:29)
[2017-11-12] MEDS: PHENYTOIN 100 MG INJ IV ×3 (05:26→21:29)
[2017-11-12] MEDS: HEPARIN 5,000 UNIT/0.5 ML VIAL SC ×3 (05:32→21:30)
[2017-11-12] MEDS: PROPOFOL 100 ML IV ×3 (05:45→23:00)
[2017-11-12] MEDS: LEVETIRACETAM 1000 MG (PMX) 100 ML IVPB ×2 (08:23→20:52)
[2017-11-12 14:06] LABS: CRYPTOCOCCAL ANTIGEN - SOURCE SERUM; MYCOPLASMA PNEUMONIAE AB (IGG) 3.29; NIL 0.06 IU/mL; PROCALCITONIN <0.10 ng/mL (<0.10); PROLACTIN 30.7 ng/mL (2.0-18.0); QUANTIFERON(R)-TB GOLD NEGATIVE (NEGATIVE); TB-NIL 0.02 IU/mL
[2017-11-12] MEDS: BACLOFEN 10 MG TAB PO ×2 (15:24→21:50)
[2017-11-13 05:17] LABS: AADO2 Arterial 77.7 mmHg (7.0-24.0); Allen Test ACCEPTAB; Arterial Base Excess 4.5 mmol/L (-3.0-3); Arterial Blood Gas Oxygen Sat 96.8 mmHG (95.0-98.0); Arterial COHb 0.4 % (0.0-3.0); Arterial HCO3 28.8 mmol/L (22.0-26.0); Arterial MetHb 0.4 % (0.0-1.5); Arterial Total Hemglobin 12.2 g/dl (12.0-18.0); Arterial pCO2 41.6 mmhg (35-45); MODE VENT - AC; Site Right Radial
[2017-11-13] MEDS: LEVOFLOXACIN 500 MG TAB GTB (05:21)
[2017-11-13] MEDS: PANTOPRAZOLE (EC) 40 MG TAB PO (05:21)
[2017-11-13] MEDS: MEROPENEM 1 GM/50ML(PMX) 50 ML IVPB ×3 (05:21→21:14)
[2017-11-13] MEDS: PHENYTOIN 100 MG INJ IV ×3 (05:21→21:14)
[2017-11-13] MEDS: HEPARIN 5,000 UNIT/0.5 ML VIAL SC ×3 (05:46→21:19)
[2017-11-13 05:51] LABS: ADD MAN DIFF? NO
[2017-11-13 05:57] LABS: WHITE BLOOD COUNT 4.4 10^3/ul (4.8-10.8)
[2017-11-13 05:57] LABS: BASOPHILS % 0.5 % (0.0-2.0); EOSINOPHILS # 0.1 10^3/ul (0.0-0.5); EOSINOPHILS % 2.9 % (0.0-7.0); HEMATOCRIT 34.1 % (42.0-52.0); HEMOGLOBIN 11.1 g/dl (14.0-18.0); IMMATURE GRANS #M 0.03 10^3/ul; IMMATURE GRANS % (M) 0.7 %; LYMPHOCYTES # 0.7 10^3/ul (0.8-2.9); LYMPHOCYTES % 15.1 % (15.0-51.0); MEAN CORPUSCULAR HEMOGLOBIN 29.8 pg (29.0-33.0); MEAN CORPUSCULAR HGB CONC 32.6 g/dl (32.0-37.0); MEAN CORPUSCULAR VOLUME 91.7 fl (82.0-101.0); MEAN PLATELET VOLUME 10.4 fl (7.4-10.4); MONOCYTE # 0.5 10^3/ul (0.3-0.9); MONOCYTES % 10.1 % (0.0-11.0); NEUTROPHIL # 3.1 10^3/ul (1.6-7.5); NEUTROPHILS % 70.7 % (39.0-77.0); PLATELET COUNT 342 10^3/UL (140-415); RED BLOOD COUNT 3.72 10^6/ul (4.70-6.10); RED CELL DISTRIBUTION WIDTH 13.9 % (11.5-14.5)
[2017-11-13] MEDS: PROPOFOL 100 ML IV ×3 (06:01→21:00)
[2017-11-13 06:13] LABS: LACTIC ACID 1.3 mmol/L (0.5-2.0)
[2017-11-13 06:18] LABS: ANION GAP 15 (8-16); BLOOD UREA NITROGEN 9 mg/dl (7-20); CALCIUM 9.3 mg/dl (8.4-10.2); CARBON DIOXIDE 27 mmol/L (21-31); CHLORIDE 101 mmol/L (97-110); CREATININE 0.45 mg/dl (0.61-1.24); GLUCOSE 114 mg/dl (70-220); POTASSIUM 3.9 mmol/L (3.5-5.1); SODIUM 139 mmol/L (135-144)
[2017-11-13] MEDS: LEVETIRACETAM 1000 MG (PMX) 100 ML IVPB ×2 (08:48→21:14)
[2017-11-14 05:15] LABS: ADD MAN DIFF? NO
[2017-11-14 05:24] LABS: BASOPHILS % 0.6 % (0.0-2.0); EOSINOPHILS # 0.2 10^3/ul (0.0-0.5); EOSINOPHILS % 3.1 % (0.0-7.0); HEMATOCRIT 37.7 % (42.0-52.0); HEMOGLOBIN 12.4 g/dl (14.0-18.0); IMMATURE GRANS #M 0.05 10^3/ul; LYMPHOCYTES % 18.6 % (15.0-51.0); MEAN CORPUSCULAR HGB CONC 32.9 g/dl (32.0-37.0); MEAN CORPUSCULAR VOLUME 91.3 fl (82.0-101.0); MEAN PLATELET VOLUME 9.7 fl (7.4-10.4); MONOCYTE # 0.7 10^3/ul (0.3-0.9); MONOCYTES % 12.7 % (0.0-11.0); NEUTROPHIL # 3.3 10^3/ul (1.6-7.5); PLATELET COUNT 433 10^3/UL (140-415); RED BLOOD COUNT 4.13 10^6/ul (4.70-6.10); RED CELL DISTRIBUTION WIDTH 13.3 % (11.5-14.5)
[2017-11-14 05:24] LABS: WHITE BLOOD COUNT 5.2 10^3/ul (4.8-10.8)
[2017-11-14] MEDS: PANTOPRAZOLE (EC) 40 MG TAB PO (05:28)
[2017-11-14] MEDS: PHENYTOIN 100 MG INJ IV ×3 (05:28→22:10)
[2017-11-14] MEDS: MEROPENEM 1 GM/50ML(PMX) 50 ML IVPB ×3 (05:28→22:10)
[2017-11-14 05:45] LABS: ANION GAP 16 (8-16); BLOOD UREA NITROGEN 10 mg/dl (7-20); CALCIUM 9.7 mg/dl (8.4-10.2); CARBON DIOXIDE 27 mmol/L (21-31); CHLORIDE 103 mmol/L (97-110); CREATININE 0.48 mg/dl (0.61-1.24); GLUCOSE 113 mg/dl (70-220); POTASSIUM 3.9 mmol/L (3.5-5.1); SODIUM 142 mmol/L (135-144)
[2017-11-14] MEDS: PROPOFOL 100 ML IV ×3 (06:01→19:07)
[2017-11-14] MEDS: HEPARIN 5,000 UNIT/0.5 ML VIAL SC ×3 (06:37→20:19)
[2017-11-14] MEDS: LEVETIRACETAM 1000 MG (PMX) 100 ML IVPB ×2 (10:18→20:09)
[2017-11-14] MEDS: METOPROLOL 25 MG TAB GTB ×2 (13:44→20:09)
[2017-11-14] MEDS ORDERED: SOD CHLORIDE 0.9% 500 ML IV ×2 (19:00→20:00)
[2017-11-15] MEDS: PROPOFOL 100 ML IV ×3 (03:00→15:28)
[2017-11-15] MEDS: PHENYTOIN 100 MG INJ IV ×3 (06:01→22:54)
[2017-11-15] MEDS: MEROPENEM 1 GM/50ML(PMX) 50 ML IVPB ×3 (06:01→22:53)
[2017-11-15] MEDS: HEPARIN 5,000 UNIT/0.5 ML VIAL SC ×2 (06:01→21:00)
[2017-11-15] MEDS: PANTOPRAZOLE (EC) 40 MG TAB PO (06:01)
[2017-11-15] MEDS ORDERED: SUCCINYLCHOLINE CHLORIDE 100 MG/5 ML SYG IV (07:00)
[2017-11-15] MEDS ORDERED: ROCURONIUM 50 MG INJ (07:00)
[2017-11-15] MEDS: LEVETIRACETAM 1000 MG (PMX) 100 ML IVPB ×2 (09:03→22:53)
[2017-11-15] MEDS: METOPROLOL 25 MG TAB GTB ×2 (09:04→22:54)
[2017-11-15 11:26] LABS: PROCALCITONIN <0.10 ng/mL (<0.10)
[2017-11-15] MEDS ORDERED: LIDOCAINE 1%/EPI 30 ML INJ (14:45)
[2017-11-15] MEDS: POLYMYXIN/BACITRACIN 1L IRRIG ×2 (18:05→19:04)
[2017-11-15] MEDS ORDERED: HYDROmorphONE 2 MG/ML SYG (18:49)
[2017-11-15] MEDS: GELATIN SIZE 100 SPONGE (19:05)
[2017-11-15] MEDS: LIDOCAINE 1%/EPI 30 ML INJ (19:05)
[2017-11-15] MEDS: THROMBIN 5000 UNIT VIAL (19:06)
[2017-11-15] MEDS ORDERED: POLYMYXIN/BACITRACIN 1L IRRIG (19:38)
[2017-11-15] MEDS ORDERED: BACITRACIN/POLYMYXIN 28.35 GM OINT TOP (20:19)
[2017-11-15] MEDS ORDERED: HYDROmorphONE 0.5 MG/0.5 ML SYG IV (21:30)
[2017-11-15] MEDS ORDERED: FENTAnyl 50 MCG/ML VIAL IV (21:30)
[2017-11-15] MEDS ORDERED: MEPERIDINE 25 MG INJ IV (21:30)
[2017-11-15] MEDS ORDERED: LABETALOL HCL 20MG INJ IV (21:30)
[2017-11-15] MEDS ORDERED: hydrALAzine 20 MG INJ IV (21:30)
[2017-11-16] MEDS: HYDROmorphONE 0.5 MG/0.5 ML SYG IV (01:45)
[2017-11-16] MEDS: PROPOFOL 100 ML IV ×3 (03:19→20:49)
[2017-11-16] MEDS: MEROPENEM 1 GM/50ML(PMX) 50 ML IVPB (05:50)
[2017-11-16] MEDS: PHENYTOIN 100 MG INJ IV ×3 (05:51→21:20)
[2017-11-16] MEDS: PANTOPRAZOLE (EC) 40 MG TAB PO (05:51)
[2017-11-16 07:37] LABS: AADO2 Arterial 58.8 mmHg (7.0-24.0); Allen Test ACCEPTAB; Arterial Base Excess 3.2 mmol/L (-3.0-3); Arterial Blood Gas Oxygen Sat 97.8 mmHG (95.0-98.0); Arterial COHb 0.2 % (0.0-3.0); Arterial Fraction of Oxyhgb 97.2 % (93.0-99.0); Arterial HCO3 27.6 mmol/L (22.0-26.0); Arterial MetHb 0.4 % (0.0-1.5); Arterial Total Hemglobin 11.4 g/dl (12.0-18.0); Arterial pCO2 41.6 mmhg (35-45); MODE VENT - AC; Site Right Radial
[2017-11-16] MEDS: METOPROLOL 25 MG TAB GTB (08:44)
[2017-11-16] MEDS: LEVETIRACETAM 1000 MG (PMX) 100 ML IVPB ×2 (08:44→20:52)
[2017-11-16] MEDS: HEPARIN 5,000 UNIT/0.5 ML VIAL SC ×2 (08:47→21:01)
[2017-11-16] MEDS: ACETAMINOPHEN 1000MG/100ML IV 100 ML IVPB (15:42)
[2017-11-16] MEDS: morphine 4 MG/ML VIAL IV (20:49)
[2017-11-16] MEDS: METOPROLOL 50 MG TAB GTB (20:52)
[2017-11-17] MEDS: MIDAZOLAM 1 MG/ML 2 ML INJ IV (00:28)
[2017-11-17] MEDS: PROPOFOL 100 ML IV ×2 (04:10→18:58)
[2017-11-17 05:12] LABS: ADD MAN DIFF? NO
[2017-11-17 05:17] LABS: BASOPHILS % 0.3 % (0.0-2.0); EOSINOPHILS % 0.5 % (0.0-7.0); HEMATOCRIT 31.7 % (42.0-52.0); HEMOGLOBIN 10.2 g/dl (14.0-18.0); LYMPHOCYTES # 0.9 10^3/ul (0.8-2.9); LYMPHOCYTES % 10.7 % (15.0-51.0); MEAN CORPUSCULAR HEMOGLOBIN 29.6 pg (29.0-33.0); MEAN CORPUSCULAR HGB CONC 32.2 g/dl (32.0-37.0); MEAN CORPUSCULAR VOLUME 91.9 fl (82.0-101.0); MEAN PLATELET VOLUME 9.4 fl (7.4-10.4); MONOCYTE # 1.4 10^3/ul (0.3-0.9); MONOCYTES % 16.2 % (0.0-11.0); NEUTROPHIL # 6.3 10^3/ul (1.6-7.5); NEUTROPHILS % 71.4 % (39.0-77.0); PLATELET COUNT 411 10^3/UL (140-415); RED BLOOD COUNT 3.45 10^6/ul (4.70-6.10); RED CELL DISTRIBUTION WIDTH 14.1 % (11.5-14.5)
[2017-11-17 05:17] LABS: WHITE BLOOD COUNT 8.8 10^3/ul (4.8-10.8)
[2017-11-17 05:37] LABS: ANION GAP 11 (8-16); BLOOD UREA NITROGEN 15 mg/dl (7-20); CALCIUM 8.9 mg/dl (8.4-10.2); CARBON DIOXIDE 30 mmol/L (21-31); CHLORIDE 105 mmol/L (97-110); CREATININE 0.52 mg/dl (0.61-1.24); GLUCOSE 118 mg/dl (70-220); MAGNESIUM 2.1 mg/dl (1.7-2.5); PHOSPHORUS 3.6 mg/dl (2.5-4.9); POTASSIUM 3.7 mmol/L (3.5-5.1); SODIUM 142 mmol/L (135-144)
[2017-11-17] MEDS: PANTOPRAZOLE (EC) 40 MG TAB PO (05:59)
[2017-11-17] MEDS: PHENYTOIN 100 MG INJ IV ×3 (05:59→23:45)
[2017-11-17] MEDS: ACETAMINOPHEN 1000MG/100ML IV 100 ML IVPB (06:09)
[2017-11-17 09:02] LABS: ADD UMIC YES; UR ASCORBIC ACID 20 mg/dL (NEGATIVE); UR BACTERIA FEW /HPF (NONE SEEN); UR BILIRUBIN (Dip) NEGATIVE (NEGATIVE); UR BLOOD (Dip) 1+ mg/dL (NEGATIVE); UR BUDDING YEAST FEW /HPF (NONE SEEN); UR CALCIUM OXALATE CRYSTAL FEW /HPF (NONE SEEN); UR CLARITY CLEAR (CLEAR); UR COLOR YELLOW (YELLOW); UR GLUCOSE (Dip) NEGATIVE (NEGATIVE); UR KETONES (Dip) NEGATIVE (NEGATIVE); UR LEUKOCYTE ESTERASE (Dip) NEGATIVE Leu/ul (NEGATIVE); UR MUCUS FEW /HPF (NONE SEEN); UR NITRITE (Dip) NEGATIVE (NEGATIVE); UR RBC 22 /HPF (0-5); UR TOTAL PROTEIN (Dip) NEGATIVE (NEGATIVE); UR UROBILINOGEN (Dip) NEGATIVE (NEGATIVE); UR WBC 3 /HPF (0-5)
[2017-11-17] MEDS: METOPROLOL 50 MG TAB GTB ×2 (09:14→20:36)
[2017-11-17] MEDS: LEVETIRACETAM 1000 MG (PMX) 100 ML IVPB ×2 (09:14→20:36)
[2017-11-17] MEDS: HEPARIN 5,000 UNIT/0.5 ML VIAL SC ×2 (09:29→20:43)
[2017-11-17] MEDS: morphine 2 MG INJ IV (12:38)
[2017-11-17 13:35] LABS: PHENYTOIN (DILANTIN) < 3.0 ug/ml (10.0-20.0)
[2017-11-17] MEDS ORDERED: LORAZEPAM 2 MG INJ (15:08)
[2017-11-17] MEDS: LORAZEPAM 2 MG INJ IV (15:11)
[2017-11-17] MEDS ORDERED: morphine 4 MG/ML VIAL (15:20)
[2017-11-17] MEDS: BACLOFEN 10 MG TAB PO (15:22)
[2017-11-17] MEDS: morphine 4 MG/ML VIAL IV (15:29)
[2017-11-17] MEDS: MIDAZOLAM (DRIP) 50 mg/50 mL 50 ML IV (16:27)
[2017-11-17] MEDS: ACETAMINOPHEN 650MG/20.3ML CUP GTB (17:21)
[2017-11-17] MEDS: FENTAnyl (DRIP) 1000 mcg/100mL 100 ML IV (17:58)
[2017-11-18] MEDS: MIDAZOLAM (DRIP) 50 mg/50 mL 50 ML IV (04:37)
[2017-11-18 05:08] LABS: ADD MAN DIFF? NO
[2017-11-18] MEDS: PROPOFOL 100 ML IV ×2 (05:10→23:50)
[2017-11-18 05:15] LABS: WHITE BLOOD COUNT 7.9 10^3/ul (4.8-10.8)
[2017-11-18 05:15] LABS: BASOPHILS % 0.5 % (0.0-2.0); EOSINOPHILS # 0.1 10^3/ul (0.0-0.5); EOSINOPHILS % 0.6 % (0.0-7.0); HEMATOCRIT 28.5 % (42.0-52.0); HEMOGLOBIN 9.4 g/dl (14.0-18.0); LYMPHOCYTES # 1.2 10^3/ul (0.8-2.9); LYMPHOCYTES % 15.3 % (15.0-51.0); MEAN CORPUSCULAR HEMOGLOBIN 30.7 pg (29.0-33.0); MEAN CORPUSCULAR VOLUME 93.1 fl (82.0-101.0); MEAN PLATELET VOLUME 9.9 fl (7.4-10.4); MONOCYTE # 1.5 10^3/ul (0.3-0.9); MONOCYTES % 18.9 % (0.0-11.0); NEUTROPHILS % 63.4 % (39.0-77.0); PLATELET COUNT 365 10^3/UL (140-415); RED BLOOD COUNT 3.06 10^6/ul (4.70-6.10); RED CELL DISTRIBUTION WIDTH 13.8 % (11.5-14.5)
[2017-11-18 05:47] LABS: ALANINE AMINOTRANSFERASE 135 IU/L (13-69); ALBUMIN 3.1 g/dl (3.3-4.9); ALBUMIN/GLOBULIN RATIO 1.03; ALKALINE PHOSPHATASE 124 IU/L (42-121); ANION GAP 14 (8-16); ASPARTATE AMINO TRANSFERASE 34 IU/L (15-46); BILIRUBIN,INDIRECT 0.1 mg/dl (0-1.1); BILIRUBIN,TOTAL 0.1 mg/dl (0.2-1.3); BLOOD UREA NITROGEN 15 mg/dl (7-20); CALCIUM 8.7 mg/dl (8.4-10.2); CARBON DIOXIDE 29 mmol/L (21-31); CHLORIDE 102 mmol/L (97-110); GLUCOSE 110 mg/dl (70-220); LIPASE 70 U/L (23-300); POTASSIUM 3.7 mmol/L (3.5-5.1); SODIUM 141 mmol/L (135-144); TOTAL PROTEIN 6.1 g/dl (6.1-8.1)
[2017-11-18] MEDS: PHENYTOIN 100 MG INJ IV ×3 (06:10→22:15)
[2017-11-18] MEDS: LANSOPRAZOLE 30 MG CAP PO (06:11)
[2017-11-18 08:29] LABS: AADO2 Arterial 31.8 mmHg (7.0-24.0); Allen Test ACCEPTAB; Arterial Base Excess 6.1 mmol/L (-3.0-3); Arterial Blood Gas Oxygen Sat 98.5 mmHG (95.0-98.0); Arterial COHb 0.3 % (0.0-3.0); Arterial Fraction of Oxyhgb 97.6 % (93.0-99.0); Arterial HCO3 29.5 mmol/L (22.0-26.0); Arterial MetHb 0.6 % (0.0-1.5); Arterial Total Hemglobin 6.9 g/dl (12.0-18.0); Arterial pCO2 37.3 mmhg (35-45); MODE VENT - AC; Site Right Radial
[2017-11-18] MEDS: METOPROLOL 50 MG TAB GTB ×2 (09:03→20:41)
[2017-11-18] MEDS: HEPARIN 5,000 UNIT/0.5 ML VIAL SC ×2 (09:03→20:43)
[2017-11-18] MEDS: LEVETIRACETAM 1000 MG (PMX) 100 ML IVPB ×2 (09:04→20:41)
[2017-11-18] MEDS: ONDANSETRON 4 MG INJ IV (20:25)
[2017-11-18] MEDS: FENTAnyl (DRIP) 1000 mcg/100mL 100 ML IV (23:51)
[2017-11-19] MEDS: ACETAMINOPHEN 1000MG/100ML IV 100 ML IVPB (04:56)
[2017-11-19] MEDS ORDERED: VANCOMYCIN IV PER PHARMACY XX (05:00)
[2017-11-19] MEDS: LANSOPRAZOLE 30 MG CAP PO (05:08)
[2017-11-19] MEDS: PHENYTOIN 100 MG INJ IV ×3 (05:08→21:16)
[2017-11-19 05:18] LABS: ADD MAN DIFF? NO
[2017-11-19 05:31] LABS: BASOPHILS % 0.3 % (0.0-2.0); EOSINOPHILS # 0.1 10^3/ul (0.0-0.5); EOSINOPHILS % 1.6 % (0.0-7.0); HEMATOCRIT 23.5 % (42.0-52.0); HEMOGLOBIN 7.7 g/dl (14.0-18.0); LYMPHOCYTES # 1.1 10^3/ul (0.8-2.9); LYMPHOCYTES % 17.8 % (15.0-51.0); MEAN CORPUSCULAR HEMOGLOBIN 29.6 pg (29.0-33.0); MEAN CORPUSCULAR HGB CONC 32.8 g/dl (32.0-37.0); MEAN CORPUSCULAR VOLUME 90.4 fl (82.0-101.0); MEAN PLATELET VOLUME 9.3 fl (7.4-10.4); MONOCYTE # 0.9 10^3/ul (0.3-0.9); MONOCYTES % 13.8 % (0.0-11.0); NEUTROPHIL # 4.1 10^3/ul (1.6-7.5); NEUTROPHILS % 65.7 % (39.0-77.0); PLATELET COUNT 342 10^3/UL (140-415); RED CELL DISTRIBUTION WIDTH 13.5 % (11.5-14.5)
[2017-11-19 05:31] LABS: WHITE BLOOD COUNT 6.3 10^3/ul (4.8-10.8)
[2017-11-19] MEDS: VANCOMYCIN 1.5 GM in SOD CHLORIDE 0.9% 250 ML IVPB ×2 (06:00→13:47)
[2017-11-19] MEDS: FLUCONAZOLE 100 MG/50 ML (PMX) 50 ML IVPB (06:16)
[2017-11-19 06:24] LABS: ANION GAP 10 (8-16); BLOOD UREA NITROGEN 10 mg/dl (7-20); CALCIUM 8.6 mg/dl (8.4-10.2); CARBON DIOXIDE 30 mmol/L (21-31); CHLORIDE 100 mmol/L (97-110); CREATININE 0.47 mg/dl (0.61-1.24); GLUCOSE 105 mg/dl (70-220); POTASSIUM 3.4 mmol/L (3.5-5.1); SODIUM 137 mmol/L (135-144)
[2017-11-19] MEDS: POTASSIUM CHLORIDE 20 MEQ POWDER FOR ORAL SOLN GTB (06:56)
[2017-11-19] MEDS: PROPOFOL 100 ML IV ×2 (07:05→16:08)
[2017-11-19] MEDS: VANCOMYCIN 1.25 GM in SOD CHLORIDE 0.9% 250 ML IVPB ×2 (07:18→21:30)
[2017-11-19] MEDS: METOPROLOL 50 MG TAB GTB ×2 (08:21→20:33)
[2017-11-19] MEDS: FLUCONAZOLE 100 MG TAB NGT (08:21)
[2017-11-19] MEDS: LEVETIRACETAM 1000 MG (PMX) 100 ML IVPB ×2 (08:21→20:33)
[2017-11-19] MEDS: HEPARIN 5,000 UNIT/0.5 ML VIAL SC ×2 (08:28→20:34)
[2017-11-19 16:00] LABS: PHENYTOIN (DILANTIN) < 3.0 ug/ml (10.0-20.0)
[2017-11-19] MEDS: BACLOFEN 10 MG TAB PO (20:32)
[2017-11-19] MEDS: LORAZEPAM 2 MG INJ IV (22:52)
[2017-11-19] MEDS: morphine 2 MG INJ IV (23:42)
[2017-11-20] MEDS: LORAZEPAM 2 MG INJ IV ×2 (03:08→23:54)
[2017-11-20] MEDS: morphine 2 MG INJ IV (04:41)
[2017-11-20] MEDS: ACETAMINOPHEN 1000MG/100ML IV 100 ML IVPB (04:50)
[2017-11-20 05:15] LABS: ADD MAN DIFF? NO
[2017-11-20] MEDS: LANSOPRAZOLE 30 MG CAP PO (05:15)
[2017-11-20] MEDS: PHENYTOIN 100 MG INJ IV ×3 (05:15→21:57)
[2017-11-20 05:19] LABS: WHITE BLOOD COUNT 6.4 10^3/ul (4.8-10.8)
[2017-11-20 05:19] LABS: BASOPHILS % 0.3 % (0.0-2.0); EOSINOPHILS # 0.2 10^3/ul (0.0-0.5); EOSINOPHILS % 2.6 % (0.0-7.0); HEMATOCRIT 25.1 % (42.0-52.0); HEMOGLOBIN 8.3 g/dl (14.0-18.0); LYMPHOCYTES # 0.9 10^3/ul (0.8-2.9); LYMPHOCYTES % 13.2 % (15.0-51.0); MEAN CORPUSCULAR HEMOGLOBIN 29.4 pg (29.0-33.0); MEAN CORPUSCULAR HGB CONC 33.1 g/dl (32.0-37.0); MEAN PLATELET VOLUME 9.4 fl (7.4-10.4); MONOCYTE # 0.8 10^3/ul (0.3-0.9); MONOCYTES % 13.1 % (0.0-11.0); NEUTROPHIL # 4.5 10^3/ul (1.6-7.5); NEUTROPHILS % 69.9 % (39.0-77.0); PLATELET COUNT 376 10^3/UL (140-415); RED BLOOD COUNT 2.82 10^6/ul (4.70-6.10); RED CELL DISTRIBUTION WIDTH 13.2 % (11.5-14.5)
[2017-11-20 05:42] LABS: ANION GAP 14 (8-16); BLOOD UREA NITROGEN 4 mg/dl (7-20); CALCIUM 9.1 mg/dl (8.4-10.2); CARBON DIOXIDE 28 mmol/L (21-31); CHLORIDE 100 mmol/L (97-110); CREATININE 0.42 mg/dl (0.61-1.24); GLUCOSE 107 mg/dl (70-220); POTASSIUM 3.6 mmol/L (3.5-5.1); SODIUM 138 mmol/L (135-144)
[2017-11-20 05:45] LABS: VANCOMYCIN,TROUGH 13.5 ug/ml (10.0-20.0)
[2017-11-20] MEDS: VANCOMYCIN 1.25 GM in SOD CHLORIDE 0.9% 250 ML IVPB ×3 (06:15→23:00)
[2017-11-20 09:36] LABS: PHENYTOIN (DILANTIN) 4.1 ug/ml (10.0-20.0)
[2017-11-20] MEDS: FLUCONAZOLE 100 MG TAB NGT (10:36)
[2017-11-20] MEDS: METOPROLOL 50 MG TAB GTB ×2 (10:37→21:05)
[2017-11-20] MEDS: HEPARIN 5,000 UNIT/0.5 ML VIAL SC ×2 (10:38→21:06)
[2017-11-20] MEDS: PROPOFOL 100 ML IV (10:43)
[2017-11-20] MEDS: LEVETIRACETAM 1000 MG (PMX) 100 ML IVPB ×2 (10:44→21:04)
[2017-11-21] MEDS: PROPOFOL 100 ML IV ×3 (02:25→22:04)
[2017-11-21 05:31] LABS: WHITE BLOOD COUNT 6.4 10^3/ul (4.8-10.8)
[2017-11-21 05:31] LABS: ADD MAN DIFF? NO; BASOPHILS % 0.3 % (0.0-2.0); EOSINOPHILS # 0.2 10^3/ul (0.0-0.5); EOSINOPHILS % 3.1 % (0.0-7.0); HEMATOCRIT 24.1 % (42.0-52.0); HEMOGLOBIN 8.1 g/dl (14.0-18.0); LYMPHOCYTES % 15.3 % (15.0-51.0); MEAN CORPUSCULAR HEMOGLOBIN 30.1 pg (29.0-33.0); MEAN CORPUSCULAR HGB CONC 33.6 g/dl (32.0-37.0); MEAN CORPUSCULAR VOLUME 89.6 fl (82.0-101.0); MEAN PLATELET VOLUME 9.8 fl (7.4-10.4); MONOCYTE # 0.6 10^3/ul (0.3-0.9); NEUTROPHIL # 4.5 10^3/ul (1.6-7.5); NEUTROPHILS % 70.8 % (39.0-77.0); PLATELET COUNT 382 10^3/UL (140-415); RED BLOOD COUNT 2.69 10^6/ul (4.70-6.10); RED CELL DISTRIBUTION WIDTH 13.5 % (11.5-14.5)
[2017-11-21 05:50] LABS: ANION GAP 13 (8-16); BLOOD UREA NITROGEN 4 mg/dl (7-20); CARBON DIOXIDE 28 mmol/L (21-31); CHLORIDE 100 mmol/L (97-110); CREATININE 0.42 mg/dl (0.61-1.24); GLUCOSE 109 mg/dl (70-220); POTASSIUM 3.4 mmol/L (3.5-5.1); SODIUM 138 mmol/L (135-144)
[2017-11-21] MEDS: LANSOPRAZOLE 30 MG CAP PO (06:14)
[2017-11-21] MEDS: PHENYTOIN 100 MG INJ IV ×3 (06:14→21:59)
[2017-11-21] MEDS: VANCOMYCIN 1.25 GM in SOD CHLORIDE 0.9% 250 ML IVPB ×2 (06:15→14:46)
[2017-11-21] MEDS: morphine 2 MG INJ IV (08:03)
[2017-11-21] MEDS: METOPROLOL 50 MG TAB GTB ×2 (08:27→20:43)
[2017-11-21] MEDS: FLUCONAZOLE 100 MG TAB NGT (08:27)
[2017-11-21] MEDS: HEPARIN 5,000 UNIT/0.5 ML VIAL SC ×2 (08:29→20:46)
[2017-11-21] MEDS: LEVETIRACETAM 1000 MG (PMX) 100 ML IVPB ×2 (09:40→20:42)
[2017-11-21 18:16] LABS: ADD UMIC YES; UR ASCORBIC ACID NEGATIVE (NEGATIVE); UR BACTERIA FEW /HPF (NONE SEEN); UR BILIRUBIN (Dip) NEGATIVE (NEGATIVE); UR BLOOD (Dip) 2+ mg/dL (NEGATIVE); UR CLARITY CLOUDY (CLEAR); UR COLOR YELLOW (YELLOW); UR GLUCOSE (Dip) NEGATIVE (NEGATIVE); UR KETONES (Dip) NEGATIVE (NEGATIVE); UR LEUKOCYTE ESTERASE (Dip) NEGATIVE Leu/ul (NEGATIVE); UR MUCUS FEW /HPF (NONE SEEN); UR NITRITE (Dip) NEGATIVE (NEGATIVE); UR RBC 35 /HPF (0-5); UR SPECIFIC GRAVITY (Dip) 1.012 (1.003-1.030); UR TOTAL PROTEIN (Dip) 1+ mg/dl (NEGATIVE); UR UROBILINOGEN (Dip) NEGATIVE (NEGATIVE); UR WBC 8 /HPF (0-5)
[2017-11-21] MEDS: ACETAMINOPHEN 650MG/20.3ML CUP GTB (21:59)
[2017-11-21 22:24] LABS: VANCOMYCIN,TROUGH 21.6 ug/ml (10.0-20.0)
[2017-11-22] MEDS: BACLOFEN 10 MG TAB PO (00:43)
[2017-11-22] MEDS: morphine 2 MG INJ IV ×2 (02:56→06:33)
[2017-11-22] MEDS: VANCOMYCIN 1.25 GM in SOD CHLORIDE 0.9% 250 ML IVPB ×2 (02:57→15:31)
[2017-11-22 05:39] LABS: ADD MAN DIFF? NO
[2017-11-22 05:40] LABS: BASOPHILS % 0.4 % (0.0-2.0); EOSINOPHILS # 0.2 10^3/ul (0.0-0.5); EOSINOPHILS % 3.3 % (0.0-7.0); HEMATOCRIT 26.6 % (42.0-52.0); HEMOGLOBIN 8.9 g/dl (14.0-18.0); LYMPHOCYTES # 0.9 10^3/ul (0.8-2.9); LYMPHOCYTES % 12.2 % (15.0-51.0); MEAN CORPUSCULAR HEMOGLOBIN 30.4 pg (29.0-33.0); MEAN CORPUSCULAR HGB CONC 33.5 g/dl (32.0-37.0); MEAN CORPUSCULAR VOLUME 90.8 fl (82.0-101.0); MEAN PLATELET VOLUME 9.4 fl (7.4-10.4); MONOCYTE # 0.9 10^3/ul (0.3-0.9); MONOCYTES % 12.2 % (0.0-11.0); NEUTROPHIL # 4.9 10^3/ul (1.6-7.5); NEUTROPHILS % 70.6 % (39.0-77.0); PLATELET COUNT 387 10^3/UL (140-415); RED BLOOD COUNT 2.93 10^6/ul (4.70-6.10); RED CELL DISTRIBUTION WIDTH 13.4 % (11.5-14.5)
[2017-11-22] MEDS: LANSOPRAZOLE 30 MG CAP PO (05:57)
[2017-11-22] MEDS: PHENYTOIN 100 MG INJ IV ×3 (05:57→21:00)
[2017-11-22 06:11] LABS: ANION GAP 13 (8-16); BLOOD UREA NITROGEN 6 mg/dl (7-20); CALCIUM 9.1 mg/dl (8.4-10.2); CARBON DIOXIDE 29 mmol/L (21-31); CHLORIDE 100 mmol/L (97-110); CREATININE 0.41 mg/dl (0.61-1.24); GLUCOSE 102 mg/dl (70-220); POTASSIUM 3.7 mmol/L (3.5-5.1); SODIUM 138 mmol/L (135-144)
[2017-11-22] MEDS: METOPROLOL 50 MG TAB GTB ×2 (09:40→20:54)
[2017-11-22] MEDS: LEVETIRACETAM 1000 MG (PMX) 100 ML IVPB ×2 (09:40→20:53)
[2017-11-22] MEDS: FLUCONAZOLE 100 MG TAB NGT (09:40)
[2017-11-22] MEDS: HEPARIN 5,000 UNIT/0.5 ML VIAL SC ×2 (09:43→20:50)
[2017-11-22] MEDS: HYDROCODONE/APAP (5/325) TAB GTB ×2 (10:22→20:59)
[2017-11-22] MEDS: LIDOCAINE 1% (MPF) 5 ML VIAL SC (11:05)
[2017-11-22] MEDS: SOD CHLORIDE 0.9% 100 ML (11:15)
[2017-11-23] MEDS: VANCOMYCIN 1.25 GM in SOD CHLORIDE 0.9% 250 ML IVPB ×2 (02:30→15:19)
[2017-11-23 03:43] LABS: ADD MAN DIFF? NO
[2017-11-23 04:01] LABS: BASOPHILS % 0.6 % (0.0-2.0); EOSINOPHILS # 0.3 10^3/ul (0.0-0.5); EOSINOPHILS % 4.7 % (0.0-7.0); HEMATOCRIT 25.4 % (42.0-52.0); HEMOGLOBIN 8.3 g/dl (14.0-18.0); LYMPHOCYTES # 0.9 10^3/ul (0.8-2.9); LYMPHOCYTES % 13.2 % (15.0-51.0); MEAN CORPUSCULAR HEMOGLOBIN 30.2 pg (29.0-33.0); MEAN CORPUSCULAR HGB CONC 32.7 g/dl (32.0-37.0); MEAN CORPUSCULAR VOLUME 92.4 fl (82.0-101.0); MEAN PLATELET VOLUME 9.5 fl (7.4-10.4); MONOCYTE # 0.7 10^3/ul (0.3-0.9); MONOCYTES % 10.5 % (0.0-11.0); NEUTROPHIL # 4.9 10^3/ul (1.6-7.5); NEUTROPHILS % 69.8 % (39.0-77.0); PLATELET COUNT 390 10^3/UL (140-415); RED BLOOD COUNT 2.75 10^6/ul (4.70-6.10); RED CELL DISTRIBUTION WIDTH 13.6 % (11.5-14.5)
[2017-11-23] MEDS: LANSOPRAZOLE 30 MG CAP PO (06:58)
[2017-11-23] MEDS: PHENYTOIN 100 MG INJ IV ×3 (06:58→21:45)
[2017-11-23 07:07] LABS: ANION GAP 16 (8-16); BLOOD UREA NITROGEN 8 mg/dl (7-20); CALCIUM 9.1 mg/dl (8.4-10.2); CARBON DIOXIDE 27 mmol/L (21-31); CHLORIDE 97 mmol/L (97-110); CREATININE 0.43 mg/dl (0.61-1.24); GLUCOSE 95 mg/dl (70-220); POTASSIUM 3.9 mmol/L (3.5-5.1); SODIUM 136 mmol/L (135-144)
[2017-11-23] MEDS: METOPROLOL 50 MG TAB GTB ×2 (08:48→21:14)
[2017-11-23] MEDS: FLUCONAZOLE 100 MG TAB NGT (08:48)
[2017-11-23] MEDS: HEPARIN 5,000 UNIT/0.5 ML VIAL SC ×2 (08:50→21:17)
[2017-11-23] MEDS: LEVETIRACETAM 1000 MG (PMX) 100 ML IVPB ×2 (08:52→21:14)
[2017-11-24 02:37] LABS: VANCOMYCIN,TROUGH 7.8 ug/ml (10.0-20.0)
[2017-11-24] MEDS: VANCOMYCIN 1.25 GM in SOD CHLORIDE 0.9% 250 ML IVPB (03:21)
[2017-11-24] MEDS: LANSOPRAZOLE 30 MG CAP PO (06:44)
[2017-11-24] MEDS: PHENYTOIN 100 MG INJ IV ×3 (06:46→21:15)
[2017-11-24] MEDS: LORAZEPAM 2 MG INJ IV ×2 (06:53→08:48)
[2017-11-24] MEDS: LEVETIRACETAM 1000 MG (PMX) 100 ML IVPB ×2 (08:48→23:02)
[2017-11-24] MEDS: FLUCONAZOLE 100 MG TAB NGT (08:48)
[2017-11-24] MEDS: METOPROLOL 50 MG TAB GTB ×2 (08:48→21:15)
[2017-11-24] MEDS: HEPARIN 5,000 UNIT/0.5 ML VIAL SC ×2 (08:54→21:32)
[2017-11-24] MEDS: morphine 2 MG INJ IV (09:54)
[2017-11-24] MEDS: HYDROCODONE/APAP (5/325) TAB GTB (10:06)
[2017-11-24] MEDS: VANCOMYCIN 1 GM 250 ML IVPB ×2 (10:42→21:14)
[2017-11-24] MEDS: ACETAMINOPHEN 650MG/20.3ML CUP GTB (21:36)
[2017-11-25] MEDS: VANCOMYCIN 1 GM 250 ML IVPB ×3 (03:14→18:15)
[2017-11-25] MEDS: PHENYTOIN 100 MG INJ IV ×3 (05:23→20:52)
[2017-11-25] MEDS: LANSOPRAZOLE 30 MG CAP PO (05:24)
[2017-11-25] MEDS: FLUCONAZOLE 100 MG TAB NGT (08:10)
[2017-11-25] MEDS: LEVETIRACETAM 1000 MG (PMX) 100 ML IVPB ×2 (08:11→20:50)
[2017-11-25] MEDS: METOPROLOL 50 MG TAB GTB ×2 (08:11→20:51)
[2017-11-25] MEDS: HEPARIN 5,000 UNIT/0.5 ML VIAL SC ×2 (08:31→21:34)
[2017-11-25] MEDS: ACETAMINOPHEN 650MG/20.3ML CUP GTB (12:27)
[2017-11-26] MEDS: ACETAMINOPHEN 650MG/20.3ML CUP GTB (05:35)
[2017-11-26] MEDS: LANSOPRAZOLE 30 MG CAP PO (05:36)
[2017-11-26] MEDS: PHENYTOIN 100 MG INJ IV ×3 (05:36→21:22)
[2017-11-26] MEDS: POLYETHYLENE GLYCOL 17 GM PACKET GTB (05:36)
[2017-11-26 06:16] LABS: ADD MAN DIFF? NO
[2017-11-26 06:22] LABS: BASOPHILS % 0.6 % (0.0-2.0); EOSINOPHILS # 0.3 10^3/ul (0.0-0.5); EOSINOPHILS % 3.6 % (0.0-7.0); HEMATOCRIT 27.3 % (42.0-52.0); HEMOGLOBIN 8.9 g/dl (14.0-18.0); LYMPHOCYTES # 0.9 10^3/ul (0.8-2.9); LYMPHOCYTES % 13.5 % (15.0-51.0); MEAN CORPUSCULAR HGB CONC 32.6 g/dl (32.0-37.0); MEAN CORPUSCULAR VOLUME 91.9 fl (82.0-101.0); MEAN PLATELET VOLUME 9.1 fl (7.4-10.4); MONOCYTE # 0.9 10^3/ul (0.3-0.9); MONOCYTES % 12.4 % (0.0-11.0); NEUTROPHIL # 4.7 10^3/ul (1.6-7.5); NEUTROPHILS % 68.7 % (39.0-77.0); PLATELET COUNT 382 10^3/UL (140-415); RED BLOOD COUNT 2.97 10^6/ul (4.70-6.10); RED CELL DISTRIBUTION WIDTH 13.3 % (11.5-14.5)
[2017-11-26 06:22] LABS: WHITE BLOOD COUNT 6.9 10^3/ul (4.8-10.8)
[2017-11-26] MEDS: LEVETIRACETAM 1000 MG (PMX) 100 ML IVPB ×2 (08:24→21:22)
[2017-11-26] MEDS: METOPROLOL 50 MG TAB GTB ×2 (08:24→21:23)
[2017-11-26] MEDS: DOCUSATE SODIUM 10 MG/ML (10ML CUP) GTB ×2 (08:25→21:22)
[2017-11-26] MEDS: HEPARIN 5,000 UNIT/0.5 ML VIAL SC ×2 (08:50→21:36)
[2017-11-27] MEDS: BACLOFEN 10 MG TAB PO (03:02)
[2017-11-27] MEDS: PHENYTOIN 100 MG INJ IV ×3 (06:09→21:23)
[2017-11-27] MEDS: LANSOPRAZOLE 30 MG CAP PO (06:09)
[2017-11-27] MEDS: DOCUSATE SODIUM 10 MG/ML (10ML CUP) GTB ×2 (08:35→20:58)
[2017-11-27] MEDS: LEVETIRACETAM 1000 MG (PMX) 100 ML IVPB ×2 (08:45→21:00)
[2017-11-27] MEDS: METOPROLOL 50 MG TAB GTB ×2 (08:46→21:01)
[2017-11-27] MEDS: HEPARIN 5,000 UNIT/0.5 ML VIAL SC ×2 (09:05→21:23)
[2017-11-28] MEDS: LANSOPRAZOLE 30 MG CAP PO (05:18)
[2017-11-28] MEDS: PHENYTOIN 100 MG INJ IV ×3 (05:18→22:02)
[2017-11-28] MEDS: DOCUSATE SODIUM 10 MG/ML (10ML CUP) GTB ×2 (08:11→21:57)
[2017-11-28] MEDS: LEVETIRACETAM 1000 MG (PMX) 100 ML IVPB ×2 (08:14→21:57)
[2017-11-28] MEDS: METOPROLOL 50 MG TAB GTB ×2 (08:14→21:58)
[2017-11-28] MEDS: HEPARIN 5,000 UNIT/0.5 ML VIAL SC ×2 (08:34→21:59)
[2017-11-29] MEDS: ACETAMINOPHEN 650MG/20.3ML CUP GTB (04:53)
[2017-11-29] MEDS: PHENYTOIN 100 MG INJ IV ×3 (06:39→21:44)
[2017-11-29] MEDS: LANSOPRAZOLE 30 MG CAP PO (06:39)
[2017-11-29] MEDS: DOCUSATE SODIUM 10 MG/ML (10ML CUP) GTB ×2 (09:20→21:43)
[2017-11-29] MEDS: LEVETIRACETAM 1000 MG (PMX) 100 ML IVPB ×2 (09:20→21:43)
[2017-11-29] MEDS: METOPROLOL 50 MG TAB GTB ×2 (09:21→21:44)
[2017-11-29] MEDS: HEPARIN 5,000 UNIT/0.5 ML VIAL SC ×2 (09:23→21:46)
[2017-11-30] MEDS: BACLOFEN 10 MG TAB PO (06:45)
[2017-11-30] MEDS: LANSOPRAZOLE 30 MG CAP PO (06:45)
[2017-11-30] MEDS: PHENYTOIN 100 MG INJ IV ×3 (06:45→21:57)
[2017-11-30] MEDS: LEVETIRACETAM 1000 MG (PMX) 100 ML IVPB ×2 (08:49→20:20)
[2017-11-30] MEDS: DOCUSATE SODIUM 10 MG/ML (10ML CUP) GTB ×2 (08:49→20:19)
[2017-11-30] MEDS: METOPROLOL 50 MG TAB GTB ×2 (08:50→20:19)
[2017-11-30] MEDS: HEPARIN 5,000 UNIT/0.5 ML VIAL SC ×2 (08:52→20:29)
[2017-11-30] MEDS: ACETAMINOPHEN 650MG/20.3ML CUP GTB (18:06)
[2017-11-30] MEDS: HYDROCODONE/APAP (5/325) TAB GTB (20:19)
[2017-11-30] MEDS: LORAZEPAM 2 MG INJ IV (23:58)
[2017-12-01] MEDS: HYDROCODONE/APAP (5/325) TAB NGT ×2 (02:57→14:15)
[2017-12-01] MEDS: LANSOPRAZOLE 30 MG CAP PO (05:06)
[2017-12-01] MEDS: PHENYTOIN 100 MG INJ IV ×2 (05:07→14:15)
[2017-12-01] MEDS: LEVETIRACETAM 1000 MG (PMX) 100 ML IVPB (09:23)
[2017-12-01] MEDS: DOCUSATE SODIUM 10 MG/ML (10ML CUP) GTB (09:23)
[2017-12-01] MEDS: METOPROLOL 50 MG TAB GTB (09:24)
[2017-12-01] MEDS: HEPARIN 5,000 UNIT/0.5 ML VIAL SC (09:39)
== END 2017-12-01 14:44 | DRG 25 ==
LOC: TEL 11-24 16:40 → ICU 21:16
PROC: 00160J6 Bypass Cerebral Ventricle to Peritoneal Cavity with Synthetic Substitute, Open Approach (ICD-10-PCS; 2017-11-08 12:00)
PROC: 0WJG4ZZ Inspection of Peritoneal Cavity, Percutaneous Endoscopic Approach (ICD-10-PCS; 2017-11-08 12:00)
PROC: 0NU Head and Facial Bones, Supplement (ICD-10-PCS; principal; 2017-11-08 16:17)
PROC: 5A1955Z Respiratory Ventilation, Greater than 96 Consecutive Hours (ICD-10-PCS; 2017-11-08 16:17)
PROC: 02HV33Z Insertion of Infusion Device into Superior Vena Cava, Percutaneous Approach (ICD-10-PCS; 2017-11-08 16:17)
DX: G91.8 Other hydrocephalus (principal); G93.5 Compression of brain; R56.00 Simple febrile convulsions; J96.10 Chronic respiratory failure, unspecified whether with hypoxia or hypercapnia; N39.0 Urinary tract infection, site not specified; G81.94 Hemiplegia, unspecified affecting left nondominant side; R65.10 Systemic inflammatory response syndrome (SIRS) of non-infectious origin without acute organ dysfunction; Z93.0 Tracheostomy status; Z93.1 Gastrostomy status; Z98.890 Other specified postprocedural states; R40.2433 Glasgow coma scale score 3-8, at hospital admission; Z99.81 Dependence on supplemental oxygen; G90.4 Autonomic dysreflexia; A00-B99 Certain infectious and parasitic diseases; S06.5X0S Traumatic subdural hemorrhage without loss of consciousness, sequela; R19.7 Diarrhea, unspecified; J40 Bronchitis, not specified as acute or chronic; F07.81 Postconcussional syndrome; I15.8 Other secondary hypertension
CPT/HCPCS: 36569; 36600; 70450; 71045; 76937; 80048; 80053; 80185; 80202; 81001; 82803; 82962; 83036; 83605; 83690; 83735; 84100; 84145; 84146; 85025; 85610; 85730; 86403; 86480; 86592; 86635; 86641; 86738; 87040; 87070; 87081; 87086; 87449; 89220; 94002; 94003

== ENCOUNTER 2017-12-06 14:54 | Inpatient (IN) | payer OTHER ==
[2017-12-06 15:20] LABS: ADD MAN DIFF? NO
[2017-12-06 15:25] LABS: BASOPHILS % 0.5 % (0.0-2.0); EOSINOPHILS # 0.2 10^3/ul (0.0-0.5); EOSINOPHILS % 3.4 % (0.0-7.0); HEMATOCRIT 35.9 % (42.0-52.0); LYMPHOCYTES % 15.5 % (15.0-51.0); MEAN CORPUSCULAR HEMOGLOBIN 29.8 pg (29.0-33.0); MEAN CORPUSCULAR HGB CONC 33.4 g/dl (32.0-37.0); MEAN CORPUSCULAR VOLUME 89.1 fl (82.0-101.0); MEAN PLATELET VOLUME 8.9 fl (7.4-10.4); MONOCYTE # 0.6 10^3/ul (0.3-0.9); MONOCYTES % 9.5 % (0.0-11.0); NEUTROPHIL # 4.3 10^3/ul (1.6-7.5); NEUTROPHILS % 70.4 % (39.0-77.0); PLATELET COUNT 347 10^3/UL (140-415); RED BLOOD COUNT 4.03 10^6/ul (4.70-6.10); RED CELL DISTRIBUTION WIDTH 12.5 % (11.5-14.5)
[2017-12-06 15:25] LABS: WHITE BLOOD COUNT 6.1 10^3/ul (4.8-10.8)
[2017-12-06 15:44] LABS: INR 0.96; PROTIME 12.9 Sec (11.9-14.9)
[2017-12-06 15:44] LABS: LACTIC ACID 0.8 mmol/L (0.5-2.0)
[2017-12-06 15:45] LABS: PARTIAL THROMBOPLASTIN TIME 36.6 Sec (25.0-35.0)
[2017-12-06 15:49] LABS: ANION GAP 13 (8-16); BLOOD UREA NITROGEN 17 mg/dl (7-20); CALCIUM 9.4 mg/dl (8.4-10.2); CARBON DIOXIDE 32 mmol/L (21-31); CHLORIDE 94 mmol/L (97-110); CREATININE 0.48 mg/dl (0.61-1.24); GLUCOSE 117 mg/dl (70-220); POTASSIUM 4.2 mmol/L (3.5-5.1); SODIUM 135 mmol/L (135-144)
[2017-12-06 15:59] LABS: TROPONIN-I < 0.012 ng/ml (0.000-0.120)
[2017-12-06 16:02] LABS: AADO2 Arterial 393.6 mmHg (7.0-24.0); Allen Test ACCEPTAB; Arterial Base Excess 6.6 mmol/L (-3.0-3); Arterial Blood Gas Oxygen Sat 99.4 mmHG (95.0-98.0); Arterial COHb 0.3 % (0.0-3.0); Arterial Fraction of Oxyhgb 98.7 % (93.0-99.0); Arterial HCO3 31.1 mmol/L (22.0-26.0); Arterial MetHb 0.4 % (0.0-1.5); Arterial Total Hemglobin 12.4 g/dl (12.0-18.0); Arterial pCO2 43.8 mmhg (35-45); Blood Gas PS 10; MODE VENT - AC; Site Right Radial
[2017-12-06 16:47] LABS: LACTIC ACID 0.9 mmol/L (0.5-2.0)
[2017-12-06 16:51] LABS: ADD UMIC NO; UR ASCORBIC ACID 20 mg/dL (NEGATIVE); UR BILIRUBIN (Dip) NEGATIVE (NEGATIVE); UR BLOOD (Dip) NEGATIVE (NEGATIVE); UR CLARITY CLEAR (CLEAR); UR COLOR YELLOW (YELLOW); UR GLUCOSE (Dip) NEGATIVE (NEGATIVE); UR KETONES (Dip) NEGATIVE (NEGATIVE); UR LEUKOCYTE ESTERASE (Dip) NEGATIVE Leu/ul (NEGATIVE); UR NITRITE (Dip) NEGATIVE (NEGATIVE); UR TOTAL PROTEIN (Dip) NEGATIVE (NEGATIVE); UR UROBILINOGEN (Dip) NEGATIVE (NEGATIVE)
[2017-12-06] MEDS ORDERED: ALBUTEROL HFA 8 GM INHALER INH (17:30)
[2017-12-06] MEDS ORDERED: POLYETHYLENE GLYCOL 17 GM PACKET GTB (17:30)
[2017-12-06] MEDS: DEXTROSE 5%-0.45% NACL 1,000 ML IV (19:58)
[2017-12-06 20:32] LABS: LACTIC ACID 1.3 mmol/L (0.5-2.0)
[2017-12-06] MEDS: LEVETIRACETAM 500 MG TAB PEG (20:54)
[2017-12-06] MEDS: METOPROLOL 50 MG TAB GTB (20:54)
[2017-12-06] MEDS: DOCUSATE SODIUM 10 MG/ML (10ML CUP) GTB (20:54)
[2017-12-06] MEDS: PHENYTOIN 100 MG CAP PO (21:20)
[2017-12-07 05:22] LABS: ADD MAN DIFF? NO; BASOPHILS % 0.6 % (0.0-2.0); EOSINOPHILS # 0.5 10^3/ul (0.0-0.5); EOSINOPHILS % 10.6 % (0.0-7.0); HEMATOCRIT 34.6 % (42.0-52.0); HEMOGLOBIN 11.5 g/dl (14.0-18.0); LYMPHOCYTES # 0.7 10^3/ul (0.8-2.9); LYMPHOCYTES % 14.9 % (15.0-51.0); MEAN CORPUSCULAR HEMOGLOBIN 29.4 pg (29.0-33.0); MEAN CORPUSCULAR HGB CONC 33.2 g/dl (32.0-37.0); MEAN CORPUSCULAR VOLUME 88.5 fl (82.0-101.0); MONOCYTE # 0.7 10^3/ul (0.3-0.9); MONOCYTES % 14.3 % (0.0-11.0); NEUTROPHIL # 2.9 10^3/ul (1.6-7.5); NEUTROPHILS % 59.2 % (39.0-77.0); PLATELET COUNT 323 10^3/UL (140-415); RED BLOOD COUNT 3.91 10^6/ul (4.70-6.10); RED CELL DISTRIBUTION WIDTH 12.6 % (11.5-14.5)
[2017-12-07 05:22] LABS: WHITE BLOOD COUNT 4.9 10^3/ul (4.8-10.8)
[2017-12-07] MEDS: PHENYTOIN 100 MG CAP PO ×3 (05:22→22:10)
[2017-12-07] MEDS: LANSOPRAZOLE 30 MG CAP PEG (05:23)
[2017-12-07 05:40] LABS: ALBUMIN 3.5 g/dl (3.3-4.9); ANION GAP 15 (8-16); BLOOD UREA NITROGEN 13 mg/dl (7-20); CALCIUM 9.1 mg/dl (8.4-10.2); CARBON DIOXIDE 31 mmol/L (21-31); CHLORIDE 94 mmol/L (97-110); CREATININE 0.48 mg/dl (0.61-1.24); GLUCOSE 114 mg/dl (70-220); MAGNESIUM 1.8 mg/dl (1.7-2.5); PHOSPHORUS 4.8 mg/dl (2.5-4.9); SODIUM 136 mmol/L (135-144)
[2017-12-07] MEDS: DOCUSATE SODIUM 10 MG/ML (10ML CUP) GTB ×2 (08:09→20:25)
[2017-12-07] MEDS: METOPROLOL 50 MG TAB GTB ×2 (09:39→20:32)
[2017-12-07] MEDS: LEVETIRACETAM 500 MG TAB PEG ×2 (09:39→20:31)
[2017-12-07] MEDS: DEXTROSE 5%-0.45% NACL 1,000 ML IV (13:47)
[2017-12-07] MEDS ORDERED: VANCOMYCIN IV PER PHARMACY XX (15:00)
[2017-12-07] MEDS: VANCOMYCIN 1 GM 250 ML IVPB ×2 (15:13→23:52)
[2017-12-07] MEDS: BALSAM PERU/CASTOR OIL 60 GM TUBE TOP (20:32)
[2017-12-08] MEDS: DEXTROSE 5%-0.45% NACL 1,000 ML IV ×2 (04:26→20:30)
[2017-12-08] MEDS: ONDANSETRON 4 MG INJ IV (04:26)
[2017-12-08] MEDS: LANSOPRAZOLE 30 MG CAP PEG (05:34)
[2017-12-08] MEDS: PHENYTOIN 100 MG CAP PO ×3 (05:34→21:45)
[2017-12-08 05:47] LABS: ADD MAN DIFF? NO
[2017-12-08 05:55] LABS: ABNORMAL IP MESSAGE 1; BASOPHILS % 0.1 % (0.0-2.0); EOSINOPHILS # 0.2 10^3/ul (0.0-0.5); EOSINOPHILS % 1.6 % (0.0-7.0); HEMATOCRIT 34.7 % (42.0-52.0); HEMOGLOBIN 11.5 g/dl (14.0-18.0); LYMPHOCYTES # 0.5 10^3/ul (0.8-2.9); LYMPHOCYTES % 5.7 % (15.0-51.0); MEAN CORPUSCULAR HEMOGLOBIN 29.2 pg (29.0-33.0); MEAN CORPUSCULAR HGB CONC 33.1 g/dl (32.0-37.0); MEAN CORPUSCULAR VOLUME 88.1 fl (82.0-101.0); MEAN PLATELET VOLUME 10.2 fl (7.4-10.4); MONOCYTE # 0.8 10^3/ul (0.3-0.9); NEUTROPHIL # 7.9 10^3/ul (1.6-7.5); NEUTROPHILS % 84.2 % (39.0-77.0); PLATELET COUNT 293 10^3/UL (140-415); POSITIVE DIFF @See below; RED BLOOD COUNT 3.94 10^6/ul (4.70-6.10); RED CELL DISTRIBUTION WIDTH 12.4 % (11.5-14.5)
[2017-12-08 05:55] LABS: WHITE BLOOD COUNT 9.4 10^3/ul (4.8-10.8)
[2017-12-08 06:16] LABS: ALBUMIN 3.4 g/dl (3.3-4.9); ANION GAP 12 (8-16); BLOOD UREA NITROGEN 8 mg/dl (7-20); CALCIUM 9.1 mg/dl (8.4-10.2); CARBON DIOXIDE 31 mmol/L (21-31); CHLORIDE 97 mmol/L (97-110); CREATININE 0.43 mg/dl (0.61-1.24); GLUCOSE 112 mg/dl (70-220); MAGNESIUM 1.7 mg/dl (1.7-2.5); PHOSPHORUS 4.3 mg/dl (2.5-4.9); POTASSIUM 3.4 mmol/L (3.5-5.1); SODIUM 137 mmol/L (135-144)
[2017-12-08] MEDS: VANCOMYCIN 1 GM 250 ML IVPB ×2 (06:54→17:01)
[2017-12-08] MEDS: DOCUSATE SODIUM 10 MG/ML (10ML CUP) GTB ×2 (07:39→21:00)
[2017-12-08] MEDS ORDERED: POTASSIUM CHLORIDE 20 MEQ POWDER FOR ORAL SOLN GTB ×3 (09:00)
[2017-12-08] MEDS: POTASSIUM CHLORIDE 20 MEQ POWDER FOR ORAL SOLN GTB (09:41)
[2017-12-08] MEDS: METOPROLOL 50 MG TAB GTB ×2 (09:42→21:46)
[2017-12-08] MEDS: LEVETIRACETAM 500 MG TAB PEG ×2 (09:42→21:45)
[2017-12-08] MEDS: ACETAMINOPHEN 650MG/20.3ML CUP GTB (09:49)
[2017-12-08] MEDS: VANCO TROUGH AT XX (15:20)
[2017-12-08 15:28] LABS: VANCOMYCIN,TROUGH 11.9 ug/ml (10.0-20.0)
[2017-12-08] MEDS: LORAZEPAM 2 MG INJ IV (17:07)
[2017-12-08] MEDS: BALSAM PERU/CASTOR OIL 60 GM TUBE TOP (21:47)
[2017-12-09] MEDS: VANCOMYCIN 1 GM 250 ML IVPB ×4 (01:42→22:50)
[2017-12-09 06:14] LABS: ADD MAN DIFF? NO
[2017-12-09] MEDS: LANSOPRAZOLE 30 MG CAP PEG (06:28)
[2017-12-09] MEDS: PHENYTOIN 100 MG CAP PO ×3 (06:28→21:52)
[2017-12-09 07:00] LABS: ALBUMIN 3.2 g/dl (3.3-4.9); ANION GAP 11 (8-16); BLOOD UREA NITROGEN 6 mg/dl (7-20); CALCIUM 8.9 mg/dl (8.4-10.2); CARBON DIOXIDE 27 mmol/L (21-31); CHLORIDE 105 mmol/L (97-110); CREATININE 0.44 mg/dl (0.61-1.24); GLUCOSE 106 mg/dl (70-220); MAGNESIUM 1.8 mg/dl (1.7-2.5); POTASSIUM 4.3 mmol/L (3.5-5.1); SODIUM 139 mmol/L (135-144)
[2017-12-09] MEDS: METOPROLOL 50 MG TAB GTB ×2 (08:00→21:54)
[2017-12-09] MEDS: DOCUSATE SODIUM 10 MG/ML (10ML CUP) GTB ×2 (08:00→21:53)
[2017-12-09] MEDS: LEVETIRACETAM 500 MG TAB PEG ×2 (08:00→21:53)
[2017-12-09 10:01] LABS: WHITE BLOOD COUNT 4.1 10^3/ul (4.8-10.8)
[2017-12-09 10:01] LABS: BASOPHILS % 0.7 % (0.0-2.0); EOSINOPHILS # 0.2 10^3/ul (0.0-0.5); EOSINOPHILS % 5.1 % (0.0-7.0); HEMATOCRIT 29.6 % (42.0-52.0); HEMOGLOBIN 9.5 g/dl (14.0-18.0); LYMPHOCYTES # 0.8 10^3/ul (0.8-2.9); LYMPHOCYTES % 18.6 % (15.0-51.0); MEAN CORPUSCULAR HEMOGLOBIN 29.1 pg (29.0-33.0); MEAN CORPUSCULAR HGB CONC 32.1 g/dl (32.0-37.0); MEAN CORPUSCULAR VOLUME 90.5 fl (82.0-101.0); MEAN PLATELET VOLUME 9.6 fl (7.4-10.4); MONOCYTE # 0.5 10^3/ul (0.3-0.9); MONOCYTES % 11.5 % (0.0-11.0); NEUTROPHIL # 2.6 10^3/ul (1.6-7.5); NEUTROPHILS % 63.6 % (39.0-77.0); PLATELET COUNT 311 10^3/UL (140-415); RED BLOOD COUNT 3.27 10^6/ul (4.70-6.10); RED CELL DISTRIBUTION WIDTH 12.5 % (11.5-14.5)
[2017-12-09] MEDS: DEXTROSE 5%-0.45% NACL 1,000 ML IV ×2 (12:00→21:56)
[2017-12-09] MEDS: BALSAM PERU/CASTOR OIL 60 GM TUBE TOP (21:54)
[2017-12-10] MEDS: ACETAMINOPHEN 650MG/20.3ML CUP GTB ×2 (04:51→06:45)
[2017-12-10] MEDS: DEXTROSE 5%-0.45% NACL 1,000 ML IV ×2 (05:50→22:11)
[2017-12-10] MEDS: LANSOPRAZOLE 30 MG CAP PEG (06:46)
[2017-12-10] MEDS: PHENYTOIN 100 MG CAP PO ×4 (06:46→22:05)
[2017-12-10] MEDS: DOCUSATE SODIUM 10 MG/ML (10ML CUP) GTB ×2 (08:15→21:37)
[2017-12-10] MEDS: LEVETIRACETAM 500 MG TAB PEG ×2 (08:15→21:37)
[2017-12-10] MEDS: VANCOMYCIN 1 GM 250 ML IVPB ×2 (08:15→14:16)
[2017-12-10] MEDS: METOPROLOL 50 MG TAB GTB ×2 (08:16→21:37)
[2017-12-10] MEDS: BALSAM PERU/CASTOR OIL 60 GM TUBE TOP (21:37)
[2017-12-11] MEDS: VANCOMYCIN 1 GM 250 ML IVPB ×3 (00:13→17:22)
[2017-12-11 05:48] LABS: WHITE BLOOD COUNT 5.1 10^3/ul (4.8-10.8)
[2017-12-11 05:48] LABS: ADD MAN DIFF? NO; BASOPHILS % 0.4 % (0.0-2.0); EOSINOPHILS # 0.2 10^3/ul (0.0-0.5); EOSINOPHILS % 4.7 % (0.0-7.0); HEMATOCRIT 30.3 % (42.0-52.0); LYMPHOCYTES # 0.7 10^3/ul (0.8-2.9); LYMPHOCYTES % 13.6 % (15.0-51.0); MEAN CORPUSCULAR HEMOGLOBIN 29.4 pg (29.0-33.0); MEAN CORPUSCULAR VOLUME 89.1 fl (82.0-101.0); MEAN PLATELET VOLUME 9.2 fl (7.4-10.4); MONOCYTE # 0.5 10^3/ul (0.3-0.9); MONOCYTES % 9.9 % (0.0-11.0); NEUTROPHIL # 3.6 10^3/ul (1.6-7.5); PLATELET COUNT 301 10^3/UL (140-415); RED CELL DISTRIBUTION WIDTH 12.5 % (11.5-14.5)
[2017-12-11] MEDS: LANSOPRAZOLE 30 MG CAP PEG (06:33)
[2017-12-11 06:35] LABS: ALBUMIN 3.2 g/dl (3.3-4.9); ANION GAP 11 (8-16); BLOOD UREA NITROGEN 6 mg/dl (7-20); CALCIUM 8.7 mg/dl (8.4-10.2); CARBON DIOXIDE 29 mmol/L (21-31); CHLORIDE 101 mmol/L (97-110); CREATININE 0.38 mg/dl (0.61-1.24); GLUCOSE 105 mg/dl (70-220); MAGNESIUM 1.6 mg/dl (1.7-2.5); PHOSPHORUS 3.9 mg/dl (2.5-4.9); POTASSIUM 3.6 mmol/L (3.5-5.1); SODIUM 137 mmol/L (135-144)
[2017-12-11] MEDS: PHENYTOIN 100 MG CAP PO ×3 (06:36→21:40)
[2017-12-11] MEDS: METOPROLOL 50 MG TAB GTB ×2 (08:55→21:40)
[2017-12-11] MEDS: LEVETIRACETAM 500 MG TAB PEG ×2 (08:56→21:40)
[2017-12-11] MEDS: DOCUSATE SODIUM 10 MG/ML (10ML CUP) GTB ×2 (08:57→21:41)
[2017-12-11] MEDS: DEXTROSE 5%-0.45% NACL 1,000 ML IV (15:10)
[2017-12-11] MEDS: BALSAM PERU/CASTOR OIL 60 GM TUBE TOP (21:41)
[2017-12-11 23:05] LABS: VANCOMYCIN,TROUGH 18.7 ug/ml (10.0-20.0)
[2017-12-12] MEDS: DEXTROSE 5%-0.45% NACL 1,000 ML IV (00:54)
[2017-12-12] MEDS: VANCOMYCIN 1 GM 250 ML IVPB ×2 (00:54→06:41)
[2017-12-12] MEDS: PHENYTOIN 100 MG CAP PO ×3 (06:19→20:49)
[2017-12-12] MEDS: LANSOPRAZOLE 30 MG CAP PEG (06:19)
[2017-12-12 06:52] LABS: ADD MAN DIFF? NO
[2017-12-12 06:58] LABS: BASOPHILS % 0.5 % (0.0-2.0); EOSINOPHILS # 0.2 10^3/ul (0.0-0.5); HEMATOCRIT 30.5 % (42.0-52.0); LYMPHOCYTES # 0.6 10^3/ul (0.8-2.9); LYMPHOCYTES % 15.1 % (15.0-51.0); MEAN CORPUSCULAR HEMOGLOBIN 29.5 pg (29.0-33.0); MEAN CORPUSCULAR HGB CONC 32.8 g/dl (32.0-37.0); MEAN PLATELET VOLUME 9.4 fl (7.4-10.4); MONOCYTE # 0.4 10^3/ul (0.3-0.9); MONOCYTES % 9.4 % (0.0-11.0); NEUTROPHIL # 2.9 10^3/ul (1.6-7.5); NEUTROPHILS % 70.8 % (39.0-77.0); PLATELET COUNT 291 10^3/UL (140-415); RED BLOOD COUNT 3.39 10^6/ul (4.70-6.10); RED CELL DISTRIBUTION WIDTH 12.5 % (11.5-14.5)
[2017-12-12 07:34] LABS: ALBUMIN 3.2 g/dl (3.3-4.9); ANION GAP 11 (8-16); BLOOD UREA NITROGEN 7 mg/dl (7-20); CALCIUM 9.1 mg/dl (8.4-10.2); CARBON DIOXIDE 30 mmol/L (21-31); CHLORIDE 100 mmol/L (97-110); CREATININE 0.38 mg/dl (0.61-1.24); GLUCOSE 104 mg/dl (70-220); MAGNESIUM 1.6 mg/dl (1.7-2.5); PHOSPHORUS 4.3 mg/dl (2.5-4.9); POTASSIUM 3.5 mmol/L (3.5-5.1); SODIUM 137 mmol/L (135-144)
[2017-12-12 08:54] LABS: ALANINE AMINOTRANSFERASE 65 IU/L (13-69); ALBUMIN 3.1 g/dl (3.3-4.9); ALKALINE PHOSPHATASE 184 IU/L (42-121); ASPARTATE AMINO TRANSFERASE 19 IU/L (15-46); BILIRUBIN,INDIRECT 0.2 mg/dl (0-1.1); BILIRUBIN,TOTAL 0.2 mg/dl (0.2-1.3); TOTAL PROTEIN 5.6 g/dl (6.1-8.1)
[2017-12-12] MEDS: LEVETIRACETAM 500 MG TAB PEG ×2 (09:03→20:48)
[2017-12-12] MEDS: METOPROLOL 50 MG TAB GTB ×2 (09:03→20:49)
[2017-12-12] MEDS: DOCUSATE SODIUM 10 MG/ML (10ML CUP) GTB ×2 (09:03→20:48)
[2017-12-12 09:08] LABS: PHENYTOIN (DILANTIN) 6.8 ug/ml (10.0-20.0)
[2017-12-12] MEDS ORDERED: VANCOMYCIN 750 MG in SOD CHLORIDE 0.9% 150 ML IVPB (14:00)
[2017-12-12] MEDS: MAGNESIUM SULFATE 2 GM/50 ML 50 ML IVPB (15:00)
[2017-12-12] MEDS: VANCOMYCIN 750 MG in SOD CHLORIDE 0.9% 150 ML IVPB ×2 (17:40→22:35)
[2017-12-12] MEDS: BALSAM PERU/CASTOR OIL 60 GM TUBE TOP (20:48)
[2017-12-13] MEDS: DEXTROSE 5%-0.45% NACL 1,000 ML IV ×3 (00:30→16:34)
[2017-12-13] MEDS: VANCOMYCIN 750 MG in SOD CHLORIDE 0.9% 150 ML IVPB (05:41)
[2017-12-13] MEDS: PHENYTOIN 100 MG CAP PO ×3 (05:41→20:44)
[2017-12-13] MEDS: LANSOPRAZOLE 30 MG CAP PEG (05:41)
[2017-12-13] MEDS: LEVETIRACETAM 500 MG TAB PEG ×2 (10:07→20:44)
[2017-12-13] MEDS: DOCUSATE SODIUM 10 MG/ML (10ML CUP) GTB ×2 (10:07→20:43)
[2017-12-13] MEDS: METOPROLOL 50 MG TAB GTB ×2 (10:08→20:45)
[2017-12-13 11:10] LABS: ADD MAN DIFF? NO
[2017-12-13 11:21] LABS: WHITE BLOOD COUNT 4.8 10^3/ul (4.8-10.8)
[2017-12-13 11:21] LABS: BASOPHILS % 0.4 % (0.0-2.0); EOSINOPHILS # 0.2 10^3/ul (0.0-0.5); EOSINOPHILS % 3.5 % (0.0-7.0); HEMATOCRIT 31.2 % (42.0-52.0); HEMOGLOBIN 10.1 g/dl (14.0-18.0); LYMPHOCYTES # 0.6 10^3/ul (0.8-2.9); LYMPHOCYTES % 12.5 % (15.0-51.0); MEAN CORPUSCULAR HEMOGLOBIN 29.1 pg (29.0-33.0); MEAN CORPUSCULAR HGB CONC 32.4 g/dl (32.0-37.0); MEAN CORPUSCULAR VOLUME 89.9 fl (82.0-101.0); MEAN PLATELET VOLUME 9.3 fl (7.4-10.4); MONOCYTE # 0.5 10^3/ul (0.3-0.9); MONOCYTES % 9.4 % (0.0-11.0); NEUTROPHIL # 3.5 10^3/ul (1.6-7.5); NEUTROPHILS % 73.8 % (39.0-77.0); PLATELET COUNT 309 10^3/UL (140-415); RED BLOOD COUNT 3.47 10^6/ul (4.70-6.10); RED CELL DISTRIBUTION WIDTH 12.7 % (11.5-14.5)
[2017-12-13 11:45] LABS: ANION GAP 11 (8-16); BLOOD UREA NITROGEN 8 mg/dl (7-20); CALCIUM 8.9 mg/dl (8.4-10.2); CARBON DIOXIDE 30 mmol/L (21-31); CHLORIDE 102 mmol/L (97-110); GLUCOSE 98 mg/dl (70-220); PHOSPHORUS 4.3 mg/dl (2.5-4.9); POTASSIUM 3.8 mmol/L (3.5-5.1); SODIUM 139 mmol/L (135-144)
[2017-12-13 11:46] LABS: ALBUMIN 3.1 g/dl (3.3-4.9); ANION GAP 10 (8-16); BLOOD UREA NITROGEN 8 mg/dl (7-20); CARBON DIOXIDE 30 mmol/L (21-31); CHLORIDE 102 mmol/L (97-110); CREATININE 0.39 mg/dl (0.61-1.24); GLUCOSE 95 mg/dl (70-220); MAGNESIUM 1.8 mg/dl (1.7-2.5); PHOSPHORUS 4.4 mg/dl (2.5-4.9); POTASSIUM 4.1 mmol/L (3.5-5.1); SODIUM 138 mmol/L (135-144)
[2017-12-13] MEDS: BALSAM PERU/CASTOR OIL 60 GM TUBE TOP (20:46)
[2017-12-14] MEDS: PHENYTOIN 100 MG CAP PO ×3 (05:14→21:05)
[2017-12-14] MEDS: LANSOPRAZOLE 30 MG CAP PEG (05:14)
[2017-12-14 06:16] LABS: ADD MAN DIFF? NO
[2017-12-14 06:46] LABS: ANION GAP 10 (8-16); BLOOD UREA NITROGEN 8 mg/dl (7-20); CALCIUM 8.9 mg/dl (8.4-10.2); CARBON DIOXIDE 30 mmol/L (21-31); CHLORIDE 103 mmol/L (97-110); CREATININE 0.37 mg/dl (0.61-1.24); GLUCOSE 104 mg/dl (70-220); MAGNESIUM 1.7 mg/dl (1.7-2.5); PHOSPHORUS 4.9 mg/dl (2.5-4.9); POTASSIUM 4.1 mmol/L (3.5-5.1); SODIUM 139 mmol/L (135-144)
[2017-12-14 08:31] LABS: BASOPHILS % 0.2 % (0.0-2.0); EOSINOPHILS # 0.2 10^3/ul (0.0-0.5); EOSINOPHILS % 4.8 % (0.0-7.0); HEMATOCRIT 31.3 % (42.0-52.0); LYMPHOCYTES # 0.7 10^3/ul (0.8-2.9); LYMPHOCYTES % 16.3 % (15.0-51.0); MEAN CORPUSCULAR HEMOGLOBIN 28.7 pg (29.0-33.0); MEAN CORPUSCULAR HGB CONC 31.9 g/dl (32.0-37.0); MEAN CORPUSCULAR VOLUME 89.7 fl (82.0-101.0); MEAN PLATELET VOLUME 9.5 fl (7.4-10.4); MONOCYTE # 0.4 10^3/ul (0.3-0.9); MONOCYTES % 9.2 % (0.0-11.0); PLATELET COUNT 304 10^3/UL (140-415); RED BLOOD COUNT 3.49 10^6/ul (4.70-6.10); RED CELL DISTRIBUTION WIDTH 12.7 % (11.5-14.5)
[2017-12-14 08:31] LABS: WHITE BLOOD COUNT 4.4 10^3/ul (4.8-10.8)
[2017-12-14] MEDS: DOCUSATE SODIUM 10 MG/ML (10ML CUP) GTB ×2 (09:40→21:03)
[2017-12-14] MEDS: LEVETIRACETAM 500 MG TAB PEG ×2 (09:40→21:05)
[2017-12-14] MEDS: METOPROLOL 50 MG TAB GTB ×2 (09:41→21:04)
[2017-12-14] MEDS: DEXTROSE 5%-0.45% NACL 1,000 ML IV (09:41)
[2017-12-14] MEDS: BALSAM PERU/CASTOR OIL 60 GM TUBE TOP (21:03)
[2017-12-15] MEDS: DEXTROSE 5%-0.45% NACL 1,000 ML IV (02:28)
[2017-12-15] MEDS: PHENYTOIN 100 MG CAP PO ×3 (05:12→22:01)
[2017-12-15] MEDS: LANSOPRAZOLE 30 MG CAP PEG (05:12)
[2017-12-15] MEDS: DOCUSATE SODIUM 10 MG/ML (10ML CUP) GTB ×2 (08:35→22:00)
[2017-12-15] MEDS: ACETAMINOPHEN 650MG/20.3ML CUP GTB (08:35)
[2017-12-15] MEDS: METOPROLOL 50 MG TAB GTB ×2 (08:36→22:01)
[2017-12-15] MEDS: LEVETIRACETAM 500 MG TAB PEG ×2 (08:36→22:01)
[2017-12-15] MEDS: LORAZEPAM 1 MG TAB GTB (11:30)
[2017-12-15 18:45] LABS: ALANINE AMINOTRANSFERASE 54 IU/L (13-69); ALBUMIN 3.8 g/dl (3.3-4.9); ALKALINE PHOSPHATASE 201 IU/L (42-121); ANION GAP 12 (8-16); ASPARTATE AMINO TRANSFERASE 19 IU/L (15-46); BILIRUBIN,INDIRECT 0.1 mg/dl (0-1.1); BILIRUBIN,TOTAL 0.1 mg/dl (0.2-1.3); BLOOD UREA NITROGEN 9 mg/dl (7-20); CALCIUM 9.4 mg/dl (8.4-10.2); CARBON DIOXIDE 29 mmol/L (21-31); CHLORIDE 102 mmol/L (97-110); CREATININE 0.36 mg/dl (0.61-1.24); GLUCOSE 100 mg/dl (70-220); POTASSIUM 4.4 mmol/L (3.5-5.1); SODIUM 139 mmol/L (135-144); TOTAL PROTEIN 6.5 g/dl (6.1-8.1)
[2017-12-15] MEDS: BALSAM PERU/CASTOR OIL 60 GM TUBE TOP (22:02)
[2017-12-16] MEDS: LANSOPRAZOLE 30 MG CAP PEG (05:42)
[2017-12-16] MEDS: PHENYTOIN 100 MG CAP PO ×3 (05:42→21:38)
[2017-12-16] MEDS: DOCUSATE SODIUM 10 MG/ML (10ML CUP) GTB ×2 (08:56→21:36)
[2017-12-16] MEDS: LEVETIRACETAM 500 MG TAB PEG ×2 (08:56→21:36)
[2017-12-16] MEDS: METOPROLOL 50 MG TAB GTB ×2 (09:08→21:37)
[2017-12-16] MEDS: SOD CHLORIDE 0.9% IVPB (18:35)
[2017-12-16] MEDS: DAPTOMYCIN IVPB (18:35)
[2017-12-16] MEDS: BALSAM PERU/CASTOR OIL 60 GM TUBE TOP (21:37)
[2017-12-17] MEDS: LANSOPRAZOLE 30 MG CAP PEG (05:40)
[2017-12-17] MEDS: PHENYTOIN 100 MG CAP PO ×3 (05:41→21:20)
[2017-12-17 06:03] LABS: ADD MAN DIFF? NO
[2017-12-17 06:16] LABS: ABNORMAL IP MESSAGE 1; BASOPHILS % 0.6 % (0.0-2.0); EOSINOPHILS # 0.1 10^3/ul (0.0-0.5); EOSINOPHILS % 2.8 % (0.0-7.0); HEMATOCRIT 40.5 % (42.0-52.0); HEMOGLOBIN 12.7 g/dl (14.0-18.0); LYMPHOCYTES # 0.6 10^3/ul (0.8-2.9); LYMPHOCYTES % 11.7 % (15.0-51.0); MEAN CORPUSCULAR HEMOGLOBIN 28.7 pg (29.0-33.0); MEAN CORPUSCULAR HGB CONC 31.4 g/dl (32.0-37.0); MEAN CORPUSCULAR VOLUME 91.6 fl (82.0-101.0); MONOCYTE # 0.4 10^3/ul (0.3-0.9); MONOCYTES % 8.5 % (0.0-11.0); NEUTROPHIL # 3.8 10^3/ul (1.6-7.5); NEUTROPHILS % 76.2 % (39.0-77.0); POSITIVE DIFF @See below; RED BLOOD COUNT 4.42 10^6/ul (4.70-6.10); RED CELL DISTRIBUTION WIDTH 12.4 % (11.5-14.5)
[2017-12-17 06:16] LABS: WHITE BLOOD COUNT 4.9 10^3/ul (4.8-10.8)
[2017-12-17 07:04] LABS: ANION GAP 16 (8-16); BLOOD UREA NITROGEN 13 mg/dl (7-20); CALCIUM 9.2 mg/dl (8.4-10.2); CARBON DIOXIDE 27 mmol/L (21-31); CHLORIDE 101 mmol/L (97-110); GLUCOSE 106 mg/dl (70-220); MAGNESIUM 1.9 mg/dl (1.7-2.5); PHOSPHORUS 5.2 mg/dl (2.5-4.9); POTASSIUM 4.3 mmol/L (3.5-5.1); SODIUM 140 mmol/L (135-144)
[2017-12-17 07:09] LABS: MEAN PLATELET VOLUME 11.9 fl (7.4-10.4)
[2017-12-17 07:32] LABS: CREATINE KINASE 32 IU/L (23-200)
[2017-12-17 08:25] LABS: ANISOCYTOSIS 1+ (0-0); BAND NEUTROPHILS % (M) 2 % (0-4); EOSINOPHILS % (M) 3 % (0-7); ERYTHROBLAST% (NRBC) (M) 1 % (0-0); LYMPHOCYTES #M 0.2 10^3/ul (0.8-2.9); LYMPHOCYTES % (M) 5 % (15-51); MICROCYTOSIS 1+ (0-0); MONOCYTE #M 0.3 10^3/ul (0.3-0.9); MONOCYTES % (M) 7 % (0-11); MYELOCYTES % (M) 2 % (0-0); PLATELET ESTIMATE NORMAL; POLYCHROMASIA 1+ (0-0); REACTIVE LYMPHOCYTES% (M) 2 % (0-0); SEG NEUT #M 3.9 10^3/ul (1.6-7.5); SEGMENTED NEUTROPHILS (M) % 79 % (39-77); SMUDGE%M 2 % (0-0)
[2017-12-17 08:35] LABS: PLATELET COUNT 162 10^3/UL (140-415)
[2017-12-17] MEDS: DOCUSATE SODIUM 10 MG/ML (10ML CUP) GTB ×2 (09:07→21:22)
[2017-12-17] MEDS: METOPROLOL 50 MG TAB GTB ×2 (09:08→21:21)
[2017-12-17] MEDS: LEVETIRACETAM 500 MG TAB PEG ×2 (09:09→21:20)
[2017-12-17] MEDS: SOD CHLORIDE 0.9% IVPB (17:23)
[2017-12-17] MEDS: DAPTOMYCIN IVPB (17:23)
[2017-12-17] MEDS: BALSAM PERU/CASTOR OIL 60 GM TUBE TOP (21:21)
[2017-12-18] MEDS: PHENYTOIN 100 MG CAP PO ×3 (05:37→21:00)
[2017-12-18] MEDS: LANSOPRAZOLE 30 MG CAP PEG (05:37)
[2017-12-18 06:19] LABS: ADD MAN DIFF? NO
[2017-12-18 06:25] LABS: WHITE BLOOD COUNT 8.1 10^3/ul (4.8-10.8)
[2017-12-18 06:25] LABS: BASOPHILS % 0.4 % (0.0-2.0); EOSINOPHILS # 0.1 10^3/ul (0.0-0.5); EOSINOPHILS % 1.5 % (0.0-7.0); HEMATOCRIT 35.8 % (42.0-52.0); HEMOGLOBIN 11.5 g/dl (14.0-18.0); LYMPHOCYTES # 0.6 10^3/ul (0.8-2.9); LYMPHOCYTES % 7.8 % (15.0-51.0); MEAN CORPUSCULAR HEMOGLOBIN 28.7 pg (29.0-33.0); MEAN CORPUSCULAR HGB CONC 32.1 g/dl (32.0-37.0); MEAN CORPUSCULAR VOLUME 89.3 fl (82.0-101.0); MEAN PLATELET VOLUME 9.5 fl (7.4-10.4); MONOCYTE # 0.7 10^3/ul (0.3-0.9); MONOCYTES % 8.9 % (0.0-11.0); NEUTROPHIL # 6.5 10^3/ul (1.6-7.5); NEUTROPHILS % 81.2 % (39.0-77.0); PLATELET COUNT 352 10^3/UL (140-415); RED BLOOD COUNT 4.01 10^6/ul (4.70-6.10); RED CELL DISTRIBUTION WIDTH 12.2 % (11.5-14.5)
[2017-12-18 07:14] LABS: ANION GAP 13 (8-16); BLOOD UREA NITROGEN 16 mg/dl (7-20); CALCIUM 9.2 mg/dl (8.4-10.2); CARBON DIOXIDE 30 mmol/L (21-31); CHLORIDE 101 mmol/L (97-110); CREATININE 0.44 mg/dl (0.61-1.24); GLUCOSE 100 mg/dl (70-220); MAGNESIUM 1.9 mg/dl (1.7-2.5); PHOSPHORUS 4.6 mg/dl (2.5-4.9); POTASSIUM 4.1 mmol/L (3.5-5.1); SODIUM 140 mmol/L (135-144)
[2017-12-18] MEDS: LEVETIRACETAM 500 MG TAB PEG ×2 (08:37→20:59)
[2017-12-18] MEDS: DOCUSATE SODIUM 10 MG/ML (10ML CUP) GTB ×2 (08:37→20:59)
[2017-12-18] MEDS: METOPROLOL 50 MG TAB GTB ×2 (08:38→20:59)
[2017-12-18] MEDS: DAPTOMYCIN IVPB (17:52)
[2017-12-18] MEDS: SOD CHLORIDE 0.9% IVPB (17:52)
[2017-12-18 18:02] LABS: FOLATE 13.4 ng/ml (2.8-20.0)
[2017-12-18] MEDS: BALSAM PERU/CASTOR OIL 60 GM TUBE TOP (21:00)
[2017-12-19] MEDS: PHENYTOIN 100 MG CAP PO ×3 (05:45→21:10)
[2017-12-19] MEDS: LANSOPRAZOLE 30 MG CAP PEG (05:45)
[2017-12-19 06:09] LABS: ADD MAN DIFF? NO
[2017-12-19 06:12] LABS: BASOPHILS % 0.3 % (0.0-2.0); EOSINOPHILS # 0.2 10^3/ul (0.0-0.5); EOSINOPHILS % 2.3 % (0.0-7.0); HEMATOCRIT 34.2 % (42.0-52.0); HEMOGLOBIN 11.2 g/dl (14.0-18.0); LYMPHOCYTES # 0.8 10^3/ul (0.8-2.9); LYMPHOCYTES % 11.8 % (15.0-51.0); MEAN CORPUSCULAR HGB CONC 32.7 g/dl (32.0-37.0); MEAN CORPUSCULAR VOLUME 88.6 fl (82.0-101.0); MEAN PLATELET VOLUME 9.9 fl (7.4-10.4); MONOCYTE # 0.7 10^3/ul (0.3-0.9); MONOCYTES % 10.1 % (0.0-11.0); NEUTROPHIL # 4.9 10^3/ul (1.6-7.5); NEUTROPHILS % 75.2 % (39.0-77.0); PLATELET COUNT 331 10^3/UL (140-415); RED BLOOD COUNT 3.86 10^6/ul (4.70-6.10); RED CELL DISTRIBUTION WIDTH 12.3 % (11.5-14.5)
[2017-12-19 06:12] LABS: WHITE BLOOD COUNT 6.5 10^3/ul (4.8-10.8)
[2017-12-19 06:32] LABS: INR 0.95; PROTIME 12.8 Sec (11.9-14.9)
[2017-12-19 06:37] LABS: ALANINE AMINOTRANSFERASE 46 IU/L (13-69); ALBUMIN 3.6 g/dl (3.3-4.9); ALBUMIN/GLOBULIN RATIO 1.09; ALKALINE PHOSPHATASE 204 IU/L (42-121); ANION GAP 12 (8-16); ASPARTATE AMINO TRANSFERASE 16 IU/L (15-46); BLOOD UREA NITROGEN 15 mg/dl (7-20); CALCIUM 9.1 mg/dl (8.4-10.2); CARBON DIOXIDE 31 mmol/L (21-31); CHLORIDE 99 mmol/L (97-110); CREATININE 0.42 mg/dl (0.61-1.24); GLUCOSE 99 mg/dl (70-220); MAGNESIUM 1.7 mg/dl (1.7-2.5); PHOSPHORUS 4.5 mg/dl (2.5-4.9); POTASSIUM 3.8 mmol/L (3.5-5.1); SODIUM 138 mmol/L (135-144); TOTAL PROTEIN 6.9 g/dl (6.1-8.1)
[2017-12-19 06:47] LABS: HEMOGLOBIN A1C 4.8 % (0-5.9)
[2017-12-19 06:55] LABS: PHENYTOIN (DILANTIN) 10.6 ug/ml (10.0-20.0)
[2017-12-19] MEDS: DOCUSATE SODIUM 10 MG/ML (10ML CUP) GTB ×2 (10:11→21:11)
[2017-12-19] MEDS: LEVETIRACETAM 500 MG TAB PEG ×2 (10:11→21:11)
[2017-12-19] MEDS: METOPROLOL 50 MG TAB GTB ×2 (10:12→21:13)
[2017-12-19 15:45] LABS: RAPID PLASMA REAGIN NONREACTIVE (NR)
[2017-12-19] MEDS: SOD CHLORIDE 0.9% IVPB (17:20)
[2017-12-19] MEDS: DAPTOMYCIN IVPB (17:20)
[2017-12-19] MEDS: BALSAM PERU/CASTOR OIL 60 GM TUBE TOP (21:11)
[2017-12-20 06:15] LABS: ADD MAN DIFF? NO
[2017-12-20 06:17] LABS: WHITE BLOOD COUNT 6.7 10^3/ul (4.8-10.8)
[2017-12-20 06:17] LABS: BASOPHILS % 0.3 % (0.0-2.0); EOSINOPHILS # 0.2 10^3/ul (0.0-0.5); EOSINOPHILS % 2.4 % (0.0-7.0); HEMATOCRIT 34.8 % (42.0-52.0); HEMOGLOBIN 11.3 g/dl (14.0-18.0); LYMPHOCYTES # 0.7 10^3/ul (0.8-2.9); MEAN CORPUSCULAR HEMOGLOBIN 28.8 pg (29.0-33.0); MEAN CORPUSCULAR HGB CONC 32.5 g/dl (32.0-37.0); MEAN CORPUSCULAR VOLUME 88.8 fl (82.0-101.0); MEAN PLATELET VOLUME 9.8 fl (7.4-10.4); MONOCYTE # 0.6 10^3/ul (0.3-0.9); MONOCYTES % 9.2 % (0.0-11.0); NEUTROPHIL # 5.2 10^3/ul (1.6-7.5); NEUTROPHILS % 76.8 % (39.0-77.0); PLATELET COUNT 335 10^3/UL (140-415); RED BLOOD COUNT 3.92 10^6/ul (4.70-6.10)
[2017-12-20] MEDS: PHENYTOIN 100 MG CAP PO ×3 (06:19→22:08)
[2017-12-20] MEDS: LANSOPRAZOLE 30 MG CAP PEG (06:19)
[2017-12-20 06:45] LABS: ANION GAP 14 (8-16); BLOOD UREA NITROGEN 13 mg/dl (7-20); CALCIUM 9.2 mg/dl (8.4-10.2); CARBON DIOXIDE 30 mmol/L (21-31); CHLORIDE 100 mmol/L (97-110); CREATININE 0.36 mg/dl (0.61-1.24); GLUCOSE 123 mg/dl (70-220); POTASSIUM 3.8 mmol/L (3.5-5.1); SODIUM 140 mmol/L (135-144)
[2017-12-20 07:19] LABS: PHENYTOIN (DILANTIN) 10.4 ug/ml (10.0-20.0)
[2017-12-20] MEDS: LEVETIRACETAM 500 MG TAB PEG ×2 (08:55→22:07)
[2017-12-20] MEDS: DOCUSATE SODIUM 10 MG/ML (10ML CUP) GTB ×2 (08:55→22:07)
[2017-12-20] MEDS: METOPROLOL 50 MG TAB GTB ×2 (08:55→22:07)
[2017-12-20] MEDS: SOD CHLORIDE 0.9% IVPB (16:58)
[2017-12-20] MEDS: DAPTOMYCIN IVPB (16:58)
[2017-12-20] MEDS: LACTOBACILLUS RHAMNOSUS CAP PO (22:08)
[2017-12-20] MEDS: BALSAM PERU/CASTOR OIL 60 GM TUBE TOP (22:09)
[2017-12-21] MEDS: PHENYTOIN 100 MG CAP PO ×3 (05:27→21:20)
[2017-12-21] MEDS: LANSOPRAZOLE 30 MG CAP PEG (05:27)
[2017-12-21] MEDS: DOCUSATE SODIUM 10 MG/ML (10ML CUP) GTB ×2 (08:26→21:20)
[2017-12-21] MEDS: LEVETIRACETAM 500 MG TAB PEG ×2 (08:26→21:20)
[2017-12-21] MEDS: ACETAMINOPHEN 650MG/20.3ML CUP GTB (08:26)
[2017-12-21] MEDS: LACTOBACILLUS RHAMNOSUS CAP PO ×2 (08:26→21:20)
[2017-12-21] MEDS: ENOXAPARIN 30 MG/0.3 ML SYG SC (08:29)
[2017-12-21] MEDS: METOPROLOL 50 MG TAB GTB ×2 (09:13→21:20)
[2017-12-21] MEDS: BALSAM PERU/CASTOR OIL 60 GM TUBE TOP (21:21)
[2017-12-22] MEDS: LANSOPRAZOLE 30 MG CAP PEG (05:36)
[2017-12-22] MEDS: PHENYTOIN 100 MG CAP PO ×3 (05:36→21:11)
[2017-12-22 06:15] LABS: ADD MAN DIFF? NO
[2017-12-22 06:20] LABS: BASOPHILS % 0.4 % (0.0-2.0); EOSINOPHILS # 0.2 10^3/ul (0.0-0.5); EOSINOPHILS % 2.8 % (0.0-7.0); LYMPHOCYTES # 0.7 10^3/ul (0.8-2.9); LYMPHOCYTES % 12.5 % (15.0-51.0); MEAN CORPUSCULAR HEMOGLOBIN 28.9 pg (29.0-33.0); MEAN CORPUSCULAR HGB CONC 32.4 g/dl (32.0-37.0); MEAN CORPUSCULAR VOLUME 89.2 fl (82.0-101.0); MEAN PLATELET VOLUME 10.9 fl (7.4-10.4); MONOCYTE # 0.5 10^3/ul (0.3-0.9); MONOCYTES % 8.4 % (0.0-11.0); NEUTROPHIL # 4.1 10^3/ul (1.6-7.5); NEUTROPHILS % 75.7 % (39.0-77.0); PLATELET COUNT 247 10^3/UL (140-415); RED BLOOD COUNT 3.81 10^6/ul (4.70-6.10); RED CELL DISTRIBUTION WIDTH 11.9 % (11.5-14.5)
[2017-12-22 06:20] LABS: WHITE BLOOD COUNT 5.4 10^3/ul (4.8-10.8)
[2017-12-22 06:58] LABS: ALANINE AMINOTRANSFERASE 37 IU/L (13-69); ALBUMIN 3.7 g/dl (3.3-4.9); ALBUMIN/GLOBULIN RATIO 1.27; ALKALINE PHOSPHATASE 193 IU/L (42-121); ASPARTATE AMINO TRANSFERASE 16 IU/L (15-46); BLOOD UREA NITROGEN 13 mg/dl (7-20); CALCIUM 9.2 mg/dl (8.4-10.2); CARBON DIOXIDE 31 mmol/L (21-31); CHLORIDE 99 mmol/L (97-110); CREATININE 0.41 mg/dl (0.61-1.24); GLUCOSE 123 mg/dl (70-220); SODIUM 143 mmol/L (135-144); TOTAL PROTEIN 6.6 g/dl (6.1-8.1)
[2017-12-22 06:59] LABS: ANION GAP 17 (8-16); POTASSIUM 3.9 mmol/L (3.5-5.1)
[2017-12-22] MEDS: DOCUSATE SODIUM 10 MG/ML (10ML CUP) GTB ×2 (08:41→21:11)
[2017-12-22] MEDS: METOPROLOL 50 MG TAB GTB ×2 (08:41→21:14)
[2017-12-22] MEDS: LEVETIRACETAM 500 MG TAB PEG ×2 (08:41→21:11)
[2017-12-22] MEDS: LACTOBACILLUS RHAMNOSUS CAP PO ×2 (08:41→21:11)
[2017-12-22] MEDS: ENOXAPARIN 30 MG/0.3 ML SYG SC (08:44)
[2017-12-22] MEDS: BALSAM PERU/CASTOR OIL 60 GM TUBE TOP (22:57)
[2017-12-23] MEDS: LANSOPRAZOLE 30 MG CAP PEG (05:39)
[2017-12-23] MEDS: PHENYTOIN 100 MG CAP PO ×3 (05:39→22:14)
[2017-12-23] MEDS: DOCUSATE SODIUM 10 MG/ML (10ML CUP) GTB ×2 (09:55→22:14)
[2017-12-23] MEDS: METOPROLOL 50 MG TAB GTB ×2 (09:56→22:15)
[2017-12-23] MEDS: LEVETIRACETAM 500 MG TAB PEG ×2 (09:56→22:15)
[2017-12-23] MEDS: LACTOBACILLUS RHAMNOSUS CAP PO ×2 (09:56→22:15)
[2017-12-23] MEDS: ENOXAPARIN 30 MG/0.3 ML SYG SC (09:58)
[2017-12-23] MEDS: PIPER-TAZO 3.375 GM IV (PMX) 100 ML IVPB ×2 (14:17→22:14)
[2017-12-23] MEDS: BALSAM PERU/CASTOR OIL 60 GM TUBE TOP (22:16)
[2017-12-24] MEDS: LANSOPRAZOLE 30 MG CAP PEG (05:39)
[2017-12-24] MEDS: PHENYTOIN 100 MG CAP PO ×2 (05:39→14:54)
[2017-12-24] MEDS: PIPER-TAZO 3.375 GM IV (PMX) 100 ML IVPB (05:39)
[2017-12-24] MEDS: METOPROLOL 50 MG TAB GTB (09:40)
[2017-12-24] MEDS: DOCUSATE SODIUM 10 MG/ML (10ML CUP) GTB (09:40)
[2017-12-24] MEDS: LACTOBACILLUS RHAMNOSUS CAP PO (09:40)
[2017-12-24] MEDS: LEVETIRACETAM 500 MG TAB PEG (09:40)
[2017-12-24] MEDS: ENOXAPARIN 30 MG/0.3 ML SYG SC (09:41)
[2017-12-24] MEDS: CEFTRIAXONE 1 GM/50 ML (PMX) 50 ML IVPB (14:54)
== END 2017-12-24 21:34 | DRG 919 ==
LOC: E/R 14:54 → 6WM 12-08 20:34 → ICU 17:18
PROC: 5A1955Z Respiratory Ventilation, Greater than 96 Consecutive Hours (ICD-10-PCS; principal; 2017-12-06)
DX: G97.63 Postprocedural seroma of a nervous system organ or structure following a nervous system procedure (principal); G93.5 Compression of brain; G93.49 Other encephalopathy; R53.2 Functional quadriplegia; J96.10 Chronic respiratory failure, unspecified whether with hypoxia or hypercapnia; Z99.11 Dependence on respirator [ventilator] status; R78.81 Bacteremia; D64.9 Anemia, unspecified; G40.909 Epilepsy, unspecified, not intractable, without status epilepticus; I10 Essential (primary) hypertension; R41.82 Altered mental status, unspecified; R13.10 Dysphagia, unspecified; Z93.1 Gastrostomy status; Z93.0 Tracheostomy status; Z98.2 Presence of cerebrospinal fluid drainage device
CPT/HCPCS: 36415; 36600; 70450; 70552; 71045; 80048; 80053; 80069; 80076; 80185; 80202; 81003; 82550; 82607; 82746; 82803; 83036; 83605; 83735; 84100; 84443; 84484; 85025; 85610; 85730; 86592; 87040; 87070; 87081; 87086; 89220; 93005; 93306; 94002; 94003; 99291-25

== ENCOUNTER → 2018-01-19 | Outpatient (CLI) | payer OTHER | END | disposition home or self-care (01) | LOC: C/S 08:56 | DX: I10 Essential (primary) hypertension (principal) | CPT/HCPCS: 70450 ==